=== PATIENT | female | born 1945 | race Caucasian/White ===

== ENCOUNTER 2021-06-16 09:14 | Emergency (ER) | payer MEDICARE, BC ==
--- NOTE | 2021-06-16 10:02 | XRAY ---
Indication: Pain and swelling following fall. Comparison: None 3 view left ankle demonstrates minimally displaced lateral malleolus oblique fracture with soft tissue swelling. Elsewhere osteopenia, tiny heel spurs, and minimal ankle vascular calcifications. No other bony, articular, or soft tissue abnormalities.
[2021-06-16] MEDS ORDERED: TORAdol 30 mg Injection IM ONE (10:09)
[2021-06-16] MEDS ORDERED: TORAdol 30 mg Injection ONE (10:15)
--- NOTE | 2021-06-16 10:16 | ERPHSYRPT ---
- History of Present Illness Time Seen by Provider: 06/16/21 09:40 Source: patient Exam Limitations: no limitations Patient Subjective Stated Complaint: pt was walking down a ramp and slid on some ice twisting her left ankle Triage Nursing Assessment: Pt was brought to the ER by her , hypertensive, rates pain without moving as 1/10, denies hitting head or LOC, swelling to the medial left ankle with bruising, pulses normal, doesn't appear to be in any distress Physician History: Patient is a 75-year-old female presents to emergency department for evaluation of left ankle pain. Patient states she was at home walking down a ramp and slipped on the ice. Patient felt sudden pain in her left ankle. Pain described as an ache that is well localized. No radiation. Pain worse with weightbearing. Pain improved with rest. No other injuries. Patients fall was not associated with any neuro cardiovascular symptomology. Patient declined pain medication. Patient denies BHT or LOC. No neck pain. Cervical spine cleared clinically. Patient voices no other complaints or concerns at this time. Method of Injury: fell, twisted Occurred: just prior to arrival Quality: constant Severity of Pain-Max: moderate Severity of Pain-Current: mild Lower Extremities Pain: ankle: left Modifying Factors: Improves With: nothing Associated Symptoms: none Allergies/Adverse Reactions: No Known Drug Allergies Allergy (Verified 06/16/21 09:35) Home Medications: Losartan Potassium [Cozaar] 25 mg PO DAILY 06/16/21 [History] Travel Risk - International Travel Have you traveled outside of the country in past 3 weeks: No - Coronavirus Screening Are you exhibiting any of the following symptoms?: No Close contact with a COVID-19 positive Pt in past 14-21 Days: No - Vaccine Status Have you recieved a Covid-19 vaccination: No - Review of Systems Constitutional: No Symptoms, No Fever, No Chills Eyes: No Symptoms Ears, Nose, & Throat: No Symptoms Respiratory: No Symptoms, No Cough, No Dyspnea Cardiac: No Symptoms, No Chest Pain, No Edema, No Syncope Abdominal/Gastrointestinal: No Symptoms, No Abdominal Pain, No Nausea, No Vomiting, No Diarrhea Genitourinary Symptoms: No Symptoms, No Dysuria Musculoskeletal: No Symptoms, No Back Pain, No Neck Pain Skin: No Symptoms, No Rash Neurological: No Symptoms, No Dizziness, No Focal Weakness, No Sensory Changes Psychological: No Symptoms Endocrine: No Symptoms Hematologic/Lymphatic: No Symptoms Immunological/Allergic: No Symptoms All Other Systems: Reviewed and Negative - Past Medical History Pertinent Past Medical History: No - Past Surgical History Past Surgical History: No - Social History Smoking Status: Never smoker Exposure to second hand smoke: No Drug Use: none Patient Lives Alone: No - Female History Hx Now: No - Nursing Vital Signs Nursing Vital Signs: Initial Vital Signs Temperature 97.9 F 06/16/21 09:30 Pulse Rate 62 06/16/21 09:30 Blood Pressure 168/78 06/16/21 09:30 O2 Sat by Pulse Oximetry 96 06/16/21 09:30 Pain Scale Pain Intensity 1 - Physical Exam General Appearance: no apparent distress, alert Eyes, Ears, Nose, Throat Exam: normal ENT inspection, TMs normal, pharynx normal, moist mucous membranes Neck Exam: normal inspection, non-tender, supple, full range of motion Cardiovascular/Respiratory Exam: chest non-tender, normal breath sounds, regular rate/rhythm, no respiratory distress Gastrointestinal/Abdominal Exam: non-tender, No guarding, No tenderness Back Exam: normal inspection, No vertebral tenderness Hips Exam: bilateral: non-tender, normal inspection, normal range of motion, no evidence of injury Legs Exam: bilateral leg: non-tender, normal inspection, normal range of motion, no evidence of injury Knees Exam: bilateral knee: non-tender, normal inspection, normal range of motion, no evidence of injury Ankle Exam: right ankle: non-tender, normal inspection, normal range of motion, no evidence of injury, left ankle: pain, soft tissue tenderness, swelling (Tenderness to palpation left lateral ankle.), other (Left lower extremities neurovascular intact distally. Compartments are soft. Cap refill less than 2 seconds. Swelling left lateral ankle. There is tenderness to palpation over this area as well.) Foot Exam: bilateral foot: non-tender, normal inspection, normal range of motion, no evidence of injury Neuro/Tendon Exam: normal sensation, normal motor functions Mental Status Exam: alert, oriented x 3, cooperative Skin Exam: normal color, warm, dry SpO2 Interpretation: normal SpO2: 96 O2 Delivery: Room Air - Course Nursing assessment & vital signs reviewed: Yes - Radiology Exams Ankle X-ray Interpretation: Interpreted by me (Left distal fibular fracture. Minimal widening of ankle mortise) Lower Leg X-ray Interpretation: Interpreted by me (Left distal fibular fracture. Mild widening at ankle mortise. Ankle swelling. Otherwise no soft tissue abnormalities.) Ordered Tests: Active Orders 24 hr Category Date Time Status ANKLE (3 VIEWS) Stat Exams 06/16/21 09:44 Completed LOWER LEG Stat Exams 06/16/21 10:21 Completed Medication Summary Discontinued Medications Generic Name Dose Route Start Last Admin Trade Name Caroline PRN Reason Stop Dose Admin Ketorolac Tromethamine 30 mg 06/16/21 10:09 06/16/21 10:16 Ketorolac Tromethamine 30 Mg/Ml Inj IM 06/16/21 10:10 30 mg STAT ONE Administration Ketorolac Tromethamine Confirm 06/16/21 10:15 Ketorolac Tromethamine 30 Mg/Ml Inj Administered 06/16/21 10:16 Dose 30 mg .ROUTE .STK-MED ONE - Progress Progress: improved Progress Note: X-rays reveal a ankle fracture. Fracture immobilized. Crutches provided. Patient referred to orthopedic clinic. Patient received Toradol for pain control. She voices no other complaints at this time. Patient takes ready for discharge. Patient neurovascular intact distally after splint application. Portions of this note were created with voice recognition technology. There may be grammatical, spelling, punctuation or sound alike errors 06/16/21 11:00 Counseled pt/family regarding: diagnosis, need for follow-up, rad results - Departure Departure Disposition: Home Clinical Impression: Fall, Ankle fracture Condition: Stable Critical Care Time: No Referrals: EREN MORENO [Primary Care Provider] - Follow up/PCP as directed Additional Instructions: Discharge/Care Plan NORA PALMA was seen on 06/16/21 in the Emergency Room. The patient was counseled regarding Diagnosis,Lab results, Imaging studies, need for follow up and when to return to the Emergency Room. Prescriptions given: Discharge Note I have spoken with the patient and/or caregivers. I have explained the patient's condition, diagnosis and treatment plan based on the information available to me at this time. I have answered the patient's and/or caregiver's questions and addressed any concerns. The patient and/or caregivers have as good understanding of the patient's diagnosis, condition and treatment plan as can be expected at this point. The vital signs have been stable. The patient's condition is stable and appropriate for discharge from the emergency department. The patient will pursue further outpatient evaluation with the primary care physician or other designated or consulting physician as outlined in the discharge instructions. The patient and/or caregivers are agreeable to this plan of care and follow-up instructions have been explained in detail. The patient and/or caregivers have received these instruction. The patient/and or caregivers are aware that any significant change in condition or worsening of symptoms should prompt an immediate return to this or the closest emergency department or call 911. Prescriptions: Ketorolac Tromethamine [Toradol] 10 mg PO TID 5 Days #15 tablet Outpatient Orders: Ortho Referral Time Frame: 1 Day, Facility: [facility], Location: [facility]
--- NOTE | 2021-06-16 10:48 | XRAY ---
Indication: Fracture. Comparison: None 2 view left lower leg demonstrates incompletely visualized distal lower leg/ankle cast material limiting evaluation for fine bony detail. There is mildly displaced lateral malleolus fracture and osteopenia. No other bony, articular, or soft tissue abnormalities.
== END 2021-06-16 11:37 | disposition home or self-care (01) ==
LOC: ED 09:14
DX: S82.62XA Displaced fracture of lateral malleolus of left fibula, initial encounter for closed fracture (principal); W00.0XXA Fall on same level due to ice and snow, initial encounter; Y92.009 Unspecified place in unspecified non-institutional (private) residence as the place of occurrence of the external cause
CPT/HCPCS: 73590; 73610; 96372; 99284; J1885

== ENCOUNTER 2021-06-20 04:50 | Day surgery (SDC) | payer MEDICARE, BC ==
[2021-06-20] MEDS ORDERED: CEFAZOLIN 2 GM-D5W BAG** 2 GM/50 ML ML IV SCH (05:00)
[2021-06-20] MEDS ORDERED: Lactated Ringers 1,000 ML IV SCH (05:00)
[2021-06-20] MEDS ORDERED: Xylocaine-Mpf 2% 5 Ml Vial ONE (05:33)
[2021-06-20] MEDS ORDERED: DIPRIVAN 200 MG/20 ML IV ONE (05:33)
[2021-06-20] MEDS ORDERED: Zofran 4 MG/2 ML VIAL ONE (05:33)
[2021-06-20] MEDS ORDERED: SUBLIMAZE 100 MCG/2 ML ONE ×2 (05:34→08:46)
[2021-06-20] MEDS ORDERED: Pepcid 20 MG VIAL IV ONE (05:53)
[2021-06-20] MEDS ORDERED: TORAdol 30 mg Injection ONE (05:57)
[2021-06-20] MEDS ORDERED: Decadron 4 MG INJ ONE ×2 (05:57→07:47)
[2021-06-20] MEDS ORDERED: Zemuron 100 MG/10 ML ONE (05:57)
[2021-06-20] MEDS ORDERED: BRIDION 200MG/2ML IV ONE (05:57)
[2021-06-20] MEDS ORDERED: FAMOTIDINE 20 MG PIGGYBACK 20 MG/50 ML ML IV ONE (06:07)
[2021-06-20] MEDS ORDERED: Naropin 0.5% 30 ML VIAL ONE (07:47)
[2021-06-20] MEDS ORDERED: Hydromorphone 1 mg/ml Injection ONE (08:46)
--- NOTE | 2021-06-20 09:38 | XRAY ---
Indication: Left ankle ORIF surgery. Intraoperative fluoroscopy provided for 2 minutes 34 seconds. 36 digital spot images ultimately demonstrates lateral fixation plate/screws fixating lateral malleolus fracture in good apposition/alignment. Correlate with intraoperative findings/report.
--- NOTE | 2021-06-20 10:30 | OP ---
SURGERY DATE/TIME: 06/20/2021 0635 PREOPERATIVE DIAGNOSES: 1) Bimalleolar equivalent fracture of the left lower extremity. 2) Left ankle pain. 3) Syndesmotic disruption. POSTOPERATIVE DIAGNOSES: 1) Bimalleolar equivalent fracture of the left lower extremity. 2) Left ankle pain. 3) Syndesmotic disruption. PROCEDURE: Open reduction internal fixation of bimalleolar fracture left ankle with syndesmotic reduction. SURGEON: Jd Naqvi DPM. DIRECTOR RISK: None. ANESTHESIA: General plus postoperative popliteal block. See anesthesia report for details. HEMOSTASIS: Thigh tourniquet set to 350 mm of Mercury for 52 minutes. ESTIMATED BLOOD LOSS: Less than 20 cc. MATERIALS: Dilshad periarticular distal lateral fibula plate. A 6-hole left sided with a 3.5 x 56 mm syndesmotic screw. INDICATION FOR SURGERY: Nelda is a very pleasant 75 -year-old female who presented to my office on June 17, after having fallen the morning of as she was walking out of her home to walk her dogs and slipped on some ice. She suffered immediate pain to the left ankle and presented to the emergency room and was diagnosed with a bimalleolar equivalent ankle fracture. She presented to my office the same day and was scheduled for surgical intervention. The patient was informed that the day of surgical intervention would be determined indefinitely by her soft tissue appearance. On presentation, she was swollen. However, there was no ecchymosis or concerns. However, I was unable to assess for resting skin tension lines. On appearance this morning prior to the surgery, her resting skin tension lines were mobile, malleable and visible. The decision to proceed with surgical intervention was maintained. The patient understands all risks, complications and benefits of surgical intervention including but not limited to delayed wound healing, delayed bone healing, nonbone healing and nonwound healing, possible failure of surgical intervention and need for further surgical intervention in the future as well as need for surgical intervention to remove said hardware if it becomes irritating. She understands all of this and wishes to proceed. The patient's consent is signed and in the paper chart. It is with this we proceeded. DESCRIPTION OF PROCEDURE AND FINDINGS: The patient was assessed preoperatively in the same day surgery holding area and deemed to be an adequate candidate for surgical intervention. At this time the patient was brought into the OR and placed on the OR table in the supine position. Following this, the patient was then administered general anesthesia until sedated. A well-padded thigh tourniquet was placed on the patient's left upper thigh. Following this the left lower extremity was prepped and draped in typical sterile fashion and the left lower extremity was lowered onto the surgical field. At this time fluoroscopy was brought in to identify the location of the fibular fracture. This was marked with a marking pen and the fibular margins were then identified. Following this an Esmarch was utilized to exsanguinate the left lower extremity. The tourniquet was inflated to 350 mm of Mercury and the tourniquet was inflated. At this time the Esmarch was let down and a 15 blade was utilized to make an incision at the posterior margin of the fibula where the fracture site was quickly encountered. There was a combination of sharp and blunt dissection in order to prevent any neurovascular structures in this area. A significant amount of hematoma was found at the fracture site which was cleared out with copious amounts of sterile saline. At this time assessment of the fracture was made. A dental pick was used to clean out the hematoma in between the fracture site and there was an external rotation as well as proximal migration of the fracture fragment which the foot was held in eversion and plantar flexion in order to distract out as well as gaining longitudinal traction to the heel in order to reduce the fragment into anatomical position. A lobster claw clamp was utilized to maintain this position and this was checked under fluoroscopy. At this time a provisional fixation was applied with a Dilshad periarticular distal lateral fibular plate and gaining compression of the plate opposed to the surface of the bone utilizing a combination of locking and nonlocking screws. The distal nonlocking screws were placed unicortical in order to prevent any intervention of the joint itself and the plate was deemed to be adequate. Once all fixation was placed this was checked under fluoroscopy. A stress view was applied to the deltoid ligament which was deemed to be adequate at this time as far as laxity. The syndesmosis was then stressed and deemed to have some residual failure and gapping. At this time the decision was made to proceed with a syndesmotic screw after drilling and measuring the syndesmosis screw was inserted at a 15 to 30 degree angle relative the tibial incisura with the fibular apposition. A 3.5 mm x 56 mm screw was introduced in this orientation with a tenaculum on the peroneal trochlea of the fibula and the anterior one-third of the medial malleolus in order to insure adequate apposition this was checked under fluoroscopy. At this time final views were taken with the intraoperative fluoroscopy and the reduction was deemed to be excellent. At this time copious amounts of sterile saline were utilized to flush the surgical site and a 2.0 Vicryl was utilized to coapt the subcutaneous skin edges. Following this a 3-0 Nylon was then utilized in a horizontal mattress-type fashion to coapt the skin edges in an everted-type fashion. At this time the leg was cleansed with sterile saline and dried. A dressing consisting of Betadine, Adaptic, 4x4, Kerlix and a well-padded posterior splint with sugar-tong was applied to the left lower extremity with the foot 90 degrees relative to the leg in order to prevent contracture. The patient was then provided a popliteal block. See anesthesia report for details. Following this the patient was reversed from anesthesia and brought to the postoperative anesthesia care unit with vital signs stable and vascular status intact. The patient handled the procedure without complication as well as the anesthesia and was returned to same day surgery at that time. Postoperative orders as indicated in the patient's postoperative discharge chart.
--- NOTE | 2021-06-20 12:22 | XRAY ---
2 minutes and 34 seconds fluoroscopy time in surgery for ORIF and syndesmotic repair of the left ankle.
== END 2021-06-20 10:20 | disposition home or self-care (01) ==
LOC: SDC 04:50
PROVIDERS: ATTEND Podiatrist Foot & Ankle Surgery
DX: S82.842A Displaced bimalleolar fracture of left lower leg, initial encounter for closed fracture (principal); S93.492A Sprain of other ligament of left ankle, initial encounter; M25.572 Pain in left ankle and joints of left foot; M25.372 Other instability, left ankle
CPT/HCPCS: 27814; 27829; 64450; 73610; 76000; 76937; 76942; 93005; 99100; J0690; J1100; J1170; J1885; J2405; J2704; J2795; J3010

== ENCOUNTER 2021-12-18 18:20 | Observation (INO) | payer MEDICARE, BC ==
[2021-12-18] MEDS ORDERED: Lasix 20 MG/2 ML IV SCH (19:45)
[2021-12-18] MEDS ORDERED: Sodium Chloride 0.9% 500 ML 500 ML IV SCH (20:00)
[2021-12-18 20:57] LABS: INFLUENZA A NEGATIVE (NEGATIVE); INFLUENZA B NEGATIVE (NEGATIVE); RESPIRATORY SYNCTIAL VIRUS NEGATIVE (Negative); SARS-CoV-2 Xpert Express NEGATIVE (NEGATIVE)
[2021-12-18 22:22] LABS: ABO TYPING O; Antibody Screen NEGATIVE (NEGATIVE); RH TYPING POSITIVE
[2021-12-18 22:24] LABS: CROSS MATCH (PRBC) COMPATIBLE (COMPATIBLE)
[2021-12-19 05:39] LABS: Hemoglobin 8.5 gm/dl (12.0-16.0)
--- NOTE | 2021-12-19 11:32 | PCM.HP.ADD ---
Addendum to History & Physical - History & Physical Addendum Addendum to History & Physical: This certifies that the History & Physical in the electronic chart reflects the current health status of the patient. If there are changes in the H&P these changes/exceptions are listed as follows.
--- NOTE | 2021-12-19 11:38 | PCM.DS ---
Discharge Summary Date of Admission: 12/18/21 19:34 Admitting Physician: EREN MORENO Primary Care Provider: EREN MORENO Allergies Allergies No Known Drug Allergies Allergy (Verified 06/20/21 05:01) Hospital Summary - Hospital Course Hospital Course: Pt is a 76 yo female with atherosclerotic disease (recent carotid endarterectomy) and Rose's esophagus (seeing GI q3mo) who was admitted directly by me for anemia. She was feeling SOB with exertion and was found to have hgb of 6.2. She received 2 units of PRBC and is feeling less lightheaded this morning. Will be discharged to home on iron BID. I have called and left a message with Dr. Jay Morrow's office (GI) at [phone] re patient following up with him soon. She has an appt with me already scheduled on December 25 so we will keep that and recheck her CBC then. Pt denies any melena or hematochezia. She has not been taking her plavix regularly. - Vitals & Intake/Output Vital Signs: Vital Signs Temperature 98.3 F 12/19/21 08:00 Pulse Rate 68 12/19/21 08:00 Respiratory Rate 20 12/19/21 08:00 Blood Pressure 136/63 12/19/21 08:00 O2 Sat by Pulse Oximetry 98 12/19/21 08:00 Intake & Output: Intake & Output 12/16/21 12/17/21 12/18/21 12/19/21 11:59 11:59 11:59 11:59 Intake Total 1190 Output Total 2200 Balance -1010 Weight 60.6 kg - Lab Result Diagrams: 12/19/21 04:20 Lab Results-Last 24 Hrs: Lab Results-Last 24 Hours 12/18/21 12/18/21 12/18/21 Range/Units 20:05 20:05 Unknown Hgb (12.0-16.0) gm/dl Hct (35-47) % Influenza Type A Ag NEGATIVE (NEGATIVE) Influenza Type B Ag NEGATIVE (NEGATIVE) RSV (PCR) NEGATIVE (Negative) SARS-CoV-2 (PCR) NEGATIVE (NEGATIVE) ABO Group O Rh Factor POSITIVE Antibody Screen NEGATIVE (NEGATIVE) Crossmatch COMPATIBLE COMPATIBLE (COMPATIBLE) 12/19/21 Range/Units 04:20 Hgb 8.5 L D (12.0-16.0) gm/dl Hct 28.0 L (35-47) % Influenza Type A Ag (NEGATIVE) Influenza Type B Ag (NEGATIVE) RSV (PCR) (Negative) SARS-CoV-2 (PCR) (NEGATIVE) ABO Group Rh Factor Antibody Screen (NEGATIVE) Crossmatch (COMPATIBLE) Discharge Exam General Appearance: no apparent distress, alert Neurologic Exam: oriented x 3, cooperative Eye Exam: eyes nml inspection Ears, Nose, Throat Exam: moist mucous membranes Neck Exam: normal inspection Respiratory Exam: normal breath sounds, lungs clear, No crackles/rales, No rhonchi, No wheezing Cardiovascular Exam: regular rate/rhythm, normal heart sounds, No murmur Gastrointestinal/Abdomen Exam: soft, normal bowel sounds, No tenderness, No distention, No mass, No guarding, No rebound Back Exam: normal inspection, No rash Extremity Exam: normal inspection, No pedal edema, No swelling Skin Exam: normal color, warm, dry, No rash Final Diagnosis/Problem List - Final Discharge Diagnosis/Problem (1) Anemia Current Visit: Yes Status: Acute Assessment & Plan: improved to 8.5 hgb, from 6.2 on admission. Home on iron. Iron studies are pending. If neg GI workup, would have her see hematology. Code(s): D64.9 - ANEMIA, UNSPECIFIED (2) Barretts esophagus Current Visit: Yes Status: Chronic Assessment & Plan: sees Dr. Morrow q 3 mo - will have her f/u with him jorge. Code(s): K22.70 - ROSE'S ESOPHAGUS WITHOUT DYSPLASIA (3) Atherosclerotic cardiovascular disease Current Visit: Yes Status: Chronic Assessment & Plan: recent endarterectomy. Will discuss with her counter maker whether to recommend pt stay on plavix. Pt has admittedly been noncompliant with the plavix. Code(s): I25.10 - ATHSCL HEART DISEASE OF INUPIAT CORONARY ARTERY W/O ANG PCTRS - Discharge Disposition: Home, Self-Care Condition: Good Prescriptions: Continue Losartan Potassium [Cozaar] 25 mg PO DAILY PRN PRN PRN Reason: htn Sertraline HCl [Zoloft] 25 mg PO DAILY Cholecalciferol (Vitamin D3) [Vitamin D] 0 unit PO DAILY Ascorbic Acid 500 mg [Vitamin C 500 MG] 0 mg PO DAILY Zinc 0 mg PO DAILY Follow up with: EREN MORENO [Primary Care Provider] -
[2021-12-19] MEDS ORDERED: Pepcid 20 MG PO SCH (11:40)
[2021-12-19 12:10] VITALS: BP 136/58; PULSE 81; O2SAT 97
== END 2021-12-19 13:58 | disposition home or self-care (01) ==
LOC: MED SURG 19:34
PROVIDERS: ADMIT Family Medicine; ATTEND Family Medicine
DX: D64.9 Anemia, unspecified (principal); K22.70 Barrett's esophagus without dysplasia; I25.10 Atherosclerotic heart disease of native coronary artery without angina pectoris; E78.00 Pure hypercholesterolemia, unspecified; F41.9 Anxiety disorder, unspecified; Z79.01 Long term (current) use of anticoagulants; Z79.899 Other long term (current) drug therapy; Z20.828 Contact with and (suspected) exposure to other viral communicable diseases
CPT/HCPCS: 0241U; 36415; 36430; 85014; 85018; 86850; 86900; 86901; 86922; G0328; G0378; P9016; 80053; 81001; 82274; 82607; 82746; 84443; 85025; J1940; A9270-GY

== ENCOUNTER 2022-04-02 01:36 | Inpatient (IN) | payer MEDICARE, BC ==
[2022-04-02] MEDS ORDERED: TYLENOL 325 MG PO STA (01:54)
[2022-04-02] MEDS ORDERED: Sodium Chloride 0.9% 1000 ML 1,000 ML IV SCH (02:00)
--- NOTE | 2022-04-02 02:05 | ERPHSYRPT ---
- History of Present Illness Time Seen by Provider: 04/02/22 02:02 Source: patient Patient Subjective Stated Complaint: " I feel sick, the past couple of days. I have nausea, I feel weak. I have pain in my left leg. I got so tired earlier I had to lay down on the floor because I couldn't make it to the bathroom." Triage Nursing Assessment: Pt is alert and oriented x 3. Appears weak. Arrives to ER with daughter RADHA for generalized weakness x 2 days. Complains of fatigue, pain in left leg, and nausea. States that she had Covid a month ago. Pt denies falling or injury, was reported to be found down on floor at home but states she decided to lay down because she felt so tired. Pt is hot to touch. Skin is pale. Appears to not feel well. Physician History: Patient is a 76-year-old female presents to emergency department for evaluation. Patient complains of feeling sick for the past couple days. Patient states she is feeling nauseous weakness fatigue. Patient states she feels so weak that she is unable to walk to her bathroom. Patient laid on the floor for period of time to rest. There was no fall no trauma. No injuries. Patient also complains of pain to the left leg. Symptoms are progressive. Symptoms are moderate in intensity. Patient states she had COVID 1 month ago but has recovered. No associated chest pain or shortness of breath. No diarrhea. No rash. Patient denies a history of the same. She voices no other complaints or concerns at this time. Patient adds that she has not urinated in 2 days. However she does have the urge to urinate but has not produced urine. We will insert a Ugalde catheter. Portions of this note were created with voice recognition technology. There may be grammatical, spelling, punctuation or sound alike errors Timing/Duration: day(s) Severity: moderate Modifying Factors: Improves With: nothing Associated Symptoms: nausea, fever, malaise, weakness, No syncope Allergies/Adverse Reactions: No Known Drug Allergies Allergy (Verified 04/02/22 01:44) Home Medications: Losartan Potassium [Cozaar] 25 mg PO DAILY PRN PRN 06/16/21 [History] Ascorbic Acid 500 mg [Vitamin C 500 MG] 0 mg PO DAILY 12/19/21 [History] Cholecalciferol (Vitamin D3) [Vitamin D] 0 unit PO DAILY 12/19/21 [History] Zinc 0 mg PO DAILY 12/19/21 [History] Hx Tetanus, Diphtheria Vaccination/Date Given: No Hx Influenza Vaccination/Date Given: No Hx Pneumococcal Vaccination/Date Given: No Immunizations Up to Date: No Travel Risk - International Travel Have you traveled outside of the country in past 3 weeks: No - Coronavirus Screening Are you exhibiting any of the following symptoms?: Yes Symptoms: Vomiting/Diarrhea, Headaches/Body Aches/Fatigue Close contact with a COVID-19 positive Pt in past 14-21 Days: Yes - Vaccine Status Have you recieved a Covid-19 vaccination: No - Review of Systems Constitutional: No Symptoms, No Fever, No Chills Eyes: No Symptoms Ears, Nose, & Throat: No Symptoms Respiratory: No Symptoms, No Cough, No Dyspnea Cardiac: No Symptoms, No Chest Pain, No Edema, No Syncope Abdominal/Gastrointestinal: No Symptoms, No Abdominal Pain, No Nausea, No Vomiting, No Diarrhea Genitourinary Symptoms: No Symptoms, No Dysuria Musculoskeletal: No Symptoms, No Back Pain, No Neck Pain Skin: No Symptoms, No Rash Neurological: No Symptoms, No Dizziness, No Focal Weakness, No Sensory Changes Psychological: No Symptoms Endocrine: No Symptoms Hematologic/Lymphatic: No Symptoms Immunological/Allergic: No Symptoms All Other Systems: Reviewed and Negative - Past Medical History Pertinent Past Medical History: Yes Neurological History: No Pertinent History ENT History: No Pertinent History Cardiac History: Hypertension Respiratory History: No Pertinent History Endocrine Medical History: No Pertinent History Musculoskeletal History: Fractures GI Medical History: GERD, Hernia, Other History: No Pertinent History Psycho-Social History: No Pertinent History Female Reproductive Disorders: No Pertinent History Other Medical History: STATES SHE DOESN'T TAKE HER BLOOD PRESSURE MEDS REGULARLY. Barretts esophagus - Past Surgical History Past Surgical History: Yes Neuro Surgical History: No Pertinent History Cardiac: No Pertinent History Respiratory: No Pertinent History Gastrointestinal: No Pertinent History Genitourinary: No Pertinent History Musculoskeletal: No Pertinent History Female Surgical History: No Pertinent History Other Surgical History: colonoscopies-two ( clear), esoph. ablations r/t barretts esophagus - Social History Smoking Status: Never smoker Exposure to second hand smoke: No Drug Use: none Patient Lives Alone: No - Nursing Vital Signs Nursing Vital Signs: Initial Vital Signs Temperature 99.5 F 04/02/22 01:39 Pulse Rate 98 H 04/02/22 01:39 Respiratory Rate 20 04/02/22 01:39 Blood Pressure 105/68 04/02/22 01:39 O2 Sat by Pulse Oximetry 97 04/02/22 01:39 Pain Scale Pain Intensity 9 - Physical Exam General Appearance: no apparent distress, alert Eye Exam: PERRL/EOMI, eyes nml inspection Ears, Nose, Throat Exam: normal ENT inspection, TMs normal, pharynx normal, moist mucous membranes, dry mucous membranes Neck Exam: normal inspection, non-tender, supple, full range of motion Respiratory Exam: normal breath sounds, lungs clear, airway intact, No respi ratory distress Cardiovascular Exam: regular rate/rhythm, normal heart sounds, normal peripheral pulses Gastrointestinal/Abdomen Exam: soft, normal bowel sounds, No tenderness, No mass Back Exam: normal inspection, normal range of motion, No CVA tenderness, No vertebral tenderness Extremity Exam: normal inspection, normal range of motion, pelvis stable Neurologic Exam: alert, oriented x 3, cooperative, normal mood/affect, sensation nml, No motor deficits Skin Exam: normal color, warm, dry, No rash Lymphatic Exam: No adenopathy SpO2 Interpretation: normal SpO2: 97 O2 Delivery: Room Air - Course Nursing assessment & vital signs reviewed: Yes EKG Interpreted by Me: RATE (86), Sinus Rhythm, NORMAL AXIS, NORMAL INTERVALS - Radiology Exams Chest X-ray Interpretation: Interpreted by me (Bilateral calcified granulomas. No infiltrate or consolidation. No effusions. Normal cardiac silhouette. Osteopenia. Degenerative changes. Intact bony thorax) Ordered Tests: Active Orders 24 hr Category Date Time Status Exceptional Student Education Teacher STAT Care 04/02/22 01:55 Active EKG-ER Only STAT Care 04/02/22 01:54 Active Ugalde [Catheter-[place] Ugalde] STAT Care 04/02/22 02:35 Active IV Insertion STAT Care 04/02/22 01:54 Active Pulse Oximetry (ED) STAT Care 04/02/22 01:54 Active Telemetry q4h Care 04/02/22 03:35 Ordered CHEST 1 VIEW (PORTABLE) Stat Exams 04/02/22 01:55 Taken BLOOD CULTURE Stat Lab 04/02/22 02:18 Received CBC W DIFF Stat Lab 04/02/22 02:17 Completed CMP Stat Lab 04/02/22 02:17 Completed CULTURE,URINE Stat Lab 04/02/22 02:34 Received Lactic Acid Stat Lab 04/02/22 02:13 Completed Manual Differential NC Stat Lab 04/02/22 02:17 Completed TROPONIN Q4H Lab 04/02/22 02:17 Completed TROPONIN Q4H Lab 04/02/22 06:00 Ordered TROPONIN Q4H Lab 04/02/22 10:00 Ordered UA W/RFX CULTURE Stat Lab 04/02/22 02:34 Completed Medication Summary Generic Name Dose Route Start Last Admin Trade Name Caroline PRN Reason Stop Dose Admin Sodium Chloride 1,000 mls @ 100 mls/hr 04/02/22 02:00 04/02/22 02:15 Sodium Chloride 0.9% 1000 Ml IV 05/02/22 01:59 100 mls/hr .Q10H BASIA Administration Levofloxacin/Dextrose 500 mg in 100 mls @ 100 mls/hr 04/02/22 03:31 Levofloxacin 500mg/100ml D5w IV 04/02/22 04:30 STAT STA Potassium Chloride 20 meq in 100 mls @ 50 mls/hr 04/02/22 03:45 Potassium Chloride 20 Meq In Water 100ml IV 04/02/22 07:44 Q2H BASIA Magnesium Sulfate/Dextrose 100 mls @ 100 mls/hr 04/02/22 03:45 Magnesium 1 Gm / 100 Ml D5w IV 04/02/22 05:44 Q1H BASIA Discontinued Medications Generic Name Dose Route Start Last Admin Trade Name Caroline PRN Reason Stop Dose Admin Acetaminophen 975 mg 04/02/22 01:54 04/02/22 02:14 Acetaminophen 325 Mg Tablet PO 04/02/22 01:55 975 mg STAT STA Administration Acetaminophen Confirm 04/02/22 02:13 Acetaminophen 325 Mg Tablet Administered 04/02/22 02:14 Dose 975 mg .ROUTE .[facility] Lab/Rad Data: Laboratory Result Diagrams 04/02/22 02:17 04/02/22 02:17 Laboratory Results 04/02/22 04/02/22 04/02/22 Range/Units 02:34 02:18 02:17 WBC (4.0-10.5) x10^3/uL RBC (4.1-5.4) x10^6/uL Hgb (12.0-16.0) g/dL Hct (35-47) % MCV (78-100) fL MCH (26-32) pg MCHC (32-36) g/dL RDW (11.5-14.0) % Plt Count (150-450) x10^3/uL MPV (7.5-11.0) fL Segmented Neutrophils (36.0-66.0) % Band Neutrophils (0.0-2.0) % Lymphocytes (Manual) (24-44) % Monocytes (Manual) (0.0-12.0) % Hypochromia Platelet Estimate (NORMAL) RBC Morphology Sodium (137-145) mmol/L Potassium (3.5-5.1) mmol/L Chloride (98-107) mmol/L Carbon Dioxide (22-30) mmol/L Anion Gap (5-15) MEQ/L BUN (7-17) mg/dL Creatinine (0.52-1.04) mg/dL Estimated GFR ML/MIN Glucose (74-106) mg/dL Lactic Acid (0.4-2.0) Calcium (8.4-10.2) mg/dL Total Bilirubin (0.2-1.3) mg/dL AST (14-36) U/L ALT (0-35) U/L Alkaline Phosphatase (38-126) U/L Troponin I < 0.012 (0.000-0.034) ng/mL Serum Total Protein (6.3-8.2) g/dL Albumin (3.5-5.0) g/dL Urinalys Dipstick Clnc MAIN LAB Urine Color YELLOW (YELLOW) Urine Appearance CLOUDY (CLEAR) Urine pH 6.0 (5-6) Ur Specific [place] 1.025 (1.005-1.025) POC Urine Protein Conf 100 (Negative) Urine Ketones SMALL-15 (NEGATIVE) Urine Nitrite POSITIVE (NEGATIVE) Urine Bilirubin NEGATIVE (NEGATIVE) Urine Urobilinogen 0.2 (0-1) mg/dL Urine Leukocytes SMALL (NEGATIVE) Urine WBC (Auto) 51-100 (0-5) /HPF Urine RBC (Auto) 26-50 (0-2) /HPF U Hyaline Cast (Auto) 0-2 (0-2) /LPF U Epithel Cells (Auto) NONE (FEW) /HPF Urine Bacteria (Auto) MANY (NEGATIVE) /HPF Urine RBC MODERATE (0-5) Jesse/ul Unidentified Crystals 2-5 (NEGATIVE) /HPF Urine Mucus (Auto) SLIGHT (NEGATIVE) /HPF Ur Culture Indicated? YES Urine Glucose NEGATIVE (NEGATIVE) mg/dL Influenza Type A Ag NEGATIVE (NEGATIVE) Influenza Type B Ag NEGATIVE (NEGATIVE) RSV (PCR) NEGATIVE (Negative) SARS-CoV-2 (PCR) POSITIVE A (NEGATIVE) 04/02/22 04/02/22 04/02/22 Range/Units 02:17 02:17 02:13 WBC 14.2 H (4.0-10.5) x10^3/uL RBC 3.17 L (4.1-5.4) x10^6/uL Hgb 8.9 L (12.0-16.0) g/dL Hct 27.8 L (35-47) % MCV 87.7 (78-100) fL MCH 28.1 (26-32) pg MCHC 32.0 (32-36) g/dL RDW 14.7 H (11.5-14.0) % Plt Count 238 (150-450) x10^3/uL MPV 9.1 (7.5-11.0) fL Segmented Neutrophils 94 H (36.0-66.0) % Band Neutrophils 1 (0.0-2.0) % Lymphocytes (Manual) 1 L (24-44) % Monocytes (Manual) 4 (0.0-12.0) % Hypochromia 1+ Platelet Estimate NORMAL (NORMAL) RBC Morphology ABNORMAL Sodium 133 L (137-145) mmol/L Potassium 3.3 L (3.5-5.1) mmol/L Chloride 101 (98-107) mmol/L Carbon Dioxide 24 (22-30) mmol/L Anion Gap 10.9 (5-15) MEQ/L BUN 22 H (7-17) mg/dL Creatinine 0.75 (0.52-1.04) mg/dL Estimated GFR > 60.0 ML/MIN Glucose 118 H (74-106) mg/dL Lactic Acid 0.7 (0.4-2.0) Calcium 9.2 (8.4-10.2) mg/dL Total Bilirubin 0.50 (0.2-1.3) mg/dL AST 22 (14-36) U/L ALT 16 (0-35) U/L Alkaline Phosphatase 105 (38-126) U/L Troponin I (0.000-0.034) ng/mL Serum Total Protein 6.3 (6.3-8.2) g/dL Albumin 3.6 (3.5-5.0) g/dL Urinalys Dipstick Clnc Urine Color (YELLOW) Urine Appearance (CLEAR) Urine pH (5-6) Ur Specific [place] (1.005-1.025) POC Urine Protein Conf (Negative) Urine Ketones (NEGATIVE) Urine Nitrite (NEGATIVE) Urine Bilirubin (NEGATIVE) Urine Urobilinogen (0-1) mg/dL Urine Leukocytes (NEGATIVE) Urine WBC (Auto) (0-5) /HPF Urine RBC (Auto) (0-2) /HPF U Hyaline Cast (Auto) (0-2) /LPF U Epithel Cells (Auto) (FEW) /HPF Urine Bacteria (Auto) (NEGATIVE) /HPF Urine RBC (0-5) Jesse/ul Unidentified Crystals (NEGATIVE) /HPF Urine Mucus (Auto) (NEGATIVE) /HPF Ur Culture Indicated? Urine Glucose (NEGATIVE) mg/dL Influenza Type A Ag (NEGATIVE) Influenza Type B Ag (NEGATIVE) RSV (PCR) (Negative) SARS-CoV-2 (PCR) (NEGATIVE) - Progress Progress: improved Progress Note: Patient reassessed. She feels better. Work-up reveals a urinary tract infection/pyelonephritis. Patient is febrile. Leukocytosis observed on lab oratory work-up. Lactic acid within normal limits. Blood cultures pending. patient received Levaquin antibiotics. Patient was dehydrated on her physical exam. BUN/creatinine ratio greater than 20-1. IV fluids administered. Patient had a headache. Patient received both Tylenol and Toradol to address headache and fever. Work-up reveals a normocytic anemia. Patient appears to be chronically anemic. We will hold off on transfusing tonight. However patient typed and screened in the event that transfusion is needed on the floor. Patient hypokalemic. Patient receiving both potassium and magnesium replacement. Patient will require admission for further evaluation and treatment. Plan of care discussed with our patient's primary care provider. accepts admission to observation. Plan of care discussed with patient. She agrees to admission at [facility] for further evaluation and treatment. Of note patient states she had not urinated in 2 days. We placed a Ugalde catheter. Cloudy urine immediately expressed. Therefore there is some c omponent of urinary retention possibly related to urinary tract infection. However other urine outlet obstruction not ruled out. Patient is COVID-positive. Patient was COVID-positive last month. It is unclear if patient is experiencing a new COVID infection versus positive testing residual from previous COVID infection. Patient has no respiratory complaints. Patient's chest x-ray appears unchanged from previous. Admit orders entered Portions of this note were created with voice recognition technology. There may be grammatical, spelling, punctuation or sound alike errors 04/02/22 03:[address] Sony Will see patient in: hospital (observation) Counseled pt/family regarding: lab results, diagnosis, rad results - Departure Departure Disposition: Observation Clinical Impression: Leukocytosis, Normocytic anemia, Hypokalemia, Dehydration, Urinary retention, UTI (urinary tract infection), COVID-19, Pyelonephritis, Generalized weakness, Fever, Bandemia Condition: Stable Critical Care Time: No Referrals: EREN MORENO [Primary Care Provider] - Follow up/PCP as directed
[2022-04-02] MEDS ORDERED: TYLENOL 325 MG ONE (02:13)
[2022-04-02] MEDS ORDERED: Sodium Chloride 0.9% 1000 ML 1,000 ML ONE (02:13)
[2022-04-02 02:21] LABS: Hematocrit 27.8 % (35-47); Hemoglobin 8.9 g/dL (12.0-16.0); Mean Cell Volume 87.7 fL (78-100); Mean Corpuscular Hemoglobin 28.1 pg (26-32); Mean Platelet Volume 9.1 fL (7.5-11.0); Platelet Count 238 x10^3/uL (150-450); Red Blood Count 3.17 x10^6/uL (4.1-5.4); Red Cell Distribution Width 14.7 % (11.5-14.0); White Blood Count 14.2 x10^3/uL (4.0-10.5)
[2022-04-02 02:42] LABS: ALBUMIN 3.6 g/dL (3.5-5.0); ALKALINE PHOSPHATASE 105 U/L (38-126); ANION GAP 10.9 MEQ/L (5-15); BLOOD UREA NITROGEN 22 mg/dL (7-17); CHLORIDE 101 mmol/L (98-107); Calcium 9.2 mg/dL (8.4-10.2); Carbon Dioxide 24 mmol/L (22-30); Creatinine 1 0.75 mg/dL (0.52-1.04); EST GLOMERULAR FILTRATION RATE > 60.0 ML/MIN; Glucose 118 mg/dL (74-106); Potassium 3.3 mmol/L (3.5-5.1); SGOT/AST 22 U/L (14-36); SGPT/ALT 16 U/L (0-35); SODIUM 133 mmol/L (137-145); Total Protein 6.3 g/dL (6.3-8.2)
[2022-04-02 02:47] LABS: Bacteria MANY /HPF (NEGATIVE); Hyaline Casts 0-2 /LPF (0-2); Mucus SLIGHT /HPF (NEGATIVE); RBC 26-50 /HPF (0-2); WBC 51-100 /HPF (0-5)
[2022-04-02 02:48] LABS: Appearance CLOUDY (CLEAR); Bilirubin NEGATIVE (NEGATIVE); Dipstick done @ ? MAIN LAB; Glucose NEGATIVE (NEGATIVE); Ketones SMALL-15 (NEGATIVE); Nitrite POSITIVE (NEGATIVE); Protein,Urine Dip 100 (Negative); RBC MODERATE Ery/ul (0-5); Specific Gravity 1.025 (1.005-1.025); Urobilinogen 0.2 mg/dL (0-1)
[2022-04-02 02:49] LABS: Urine Cultured Indicated? YES
[2022-04-02 02:57] LABS: INFLUENZA A NEGATIVE (NEGATIVE); INFLUENZA B NEGATIVE (NEGATIVE); RESPIRATORY SYNCTIAL VIRUS NEGATIVE (Negative)
[2022-04-02 03:02] LABS: SARS-CoV-2 Xpert Express POSITIVE (NEGATIVE)
[2022-04-02 03:24] LABS: BAND 1 % (0.0-2.0); Lymphocytes 1 % (24-44); Monocyte 4 % (0.0-12.0); Platelet Estimate NORMAL (NORMAL); Total Cells Counted 100
[2022-04-02 03:25] LABS: Hypochromia 1+
[2022-04-02] MEDS ORDERED: Levofloxacin 500MG/100ML D5W 500 MG/100 ML BAG IV STA (03:31)
[2022-04-02] MEDS ORDERED: Levofloxacin 500MG/100ML D5W 500 MG/100 ML BAG IV ONE (03:42)
[2022-04-02] MEDS ORDERED: TORAdol 30 mg Injection IV ONE (03:49)
[2022-04-02] MEDS ORDERED: TORAdol 30 mg Injection ONE (03:50)
[2022-04-02] MEDS: POTASSIUM CHLORIDE 20 mEq IN WATER 100ML 20 MEQ/100 ML BAG IV SCH ×2 (03:58→06:46)
[2022-04-02] MEDS: Magnesium 1 Gm / 100 Ml D5W*** 100 ML IV SCH ×2 (04:00→05:28)
[2022-04-02 04:34] LABS: ABO TYPING O; Antibody Screen NEGATIVE (NEGATIVE); RH TYPING POSITIVE
[2022-04-02] MEDS ORDERED: MORPHINE SULFATE 4 MG INJ IV PRN (04:44)
[2022-04-02] MEDS: Carafate SUSPENSION 1000 MG/10 ML PO SCH ×4 (08:36→21:27)
--- NOTE | 2022-04-02 08:58 | XRAY ---
Indication: Weakness and pneumonia. Comparison: August 28, 2021 Portable chest remains hyperinflated and clear again with incidental calcified granulomas. Heart not enlarged. Bony thorax intact again with osteopenia, degenerative changes, and scoliosis. Impression: Continued nonacute hyperinflated chest with chronic features.
[2022-04-02] MEDS ORDERED: NON-FORMULARY ITEM (Losartan Potassium [Cozaar] 25 MG Tablet) PO PRN (09:09)
--- NOTE | 2022-04-02 09:10 | PCM.HP ---
History of Present Illness - Chief Complaint Chief Complaint: Pyelonephritis, hypokalemia History of Present Illness: Ms.VAN FUENTES is a 76 year old female pt of mine from [facility] with htn, hyperlipidemia, R carotid artery stenosis, Rose's esophagus, anemia, and anxiety who was admitted through ER with pyelonephritis, weakness, urine retention, and anemia. She was sick at home and got so weak she could not get up off the floor. Had not urinated more than a very small amount at a time in 2 days. Also c/o nausea and L leg pain (lateral mid thigh). Ugalde catheter was passed with immediate urine out showing UTI. Troponin neg x 1. WBC 14.2 with 94% seg. potassium 3.3 and being repleted. CXR nonacute. - Review of Systems Constitutional: Fatigue, Weakness Abdominal/Gastrointestinal: Nausea, Other (reflux) Genitourinary Symptoms: Urinary Retention, Flank Pain (on R), No Dysuria All Other Systems: Reviewed and Negative Medications & Allergies Home Medications: Home Medication List Losartan Potassium [Cozaar] 25 mg PO DAILY PRN PRN 06/16/21 [History Confirmed 04/02/22] Ascorbic Acid 500 mg [Vitamin C 500 MG] 0 mg PO DAILY 12/19/21 [History Confirmed 04/02/22] Cholecalciferol (Vitamin D3) [Vitamin D] 0 unit PO DAILY 12/19/21 [History Confirmed 04/02/22] Ferrous Sulfate 325 mg [Feosol 325 mg] 325 mg PO BID 30 Days #60 tablet 12/19/21 [Rx Confirmed 04/02/22] Zinc 0 mg PO DAILY 12/19/21 [History Confirmed 04/02/22] Allergies/Adverse Reactions: Allergies Allergy/AdvReac Type Severity Reaction Status Date / Time No Known Drug Allergies Allergy Verified 04/02/22 01:44 - Past Medical History Past Medical History: Yes Neurological History: No Pertinent History ENT History: No Pertinent History Cardiac History: Hypertension Respiratory History: No Pertinent History Endocrine Medical History: No Pertinent History Musculoskelatal History: Fractures GI Medical History: GERD, Hernia, Other History: No Pertinent History Pyscho-Social History: No Pertinent History Reproductive Disorders: No Pertinent History Comment: STATES SHE DOESN'T TAKE HER BLOOD PRESSURE MEDS REGULARLY. Barretts esophagus - Past Surgical History Past Surgical History: Yes Neuro Surgical History: No Pertinent History Cardiac History: No Pertinent History Respiratory Surgery: No Pertinent History GI Surgical History: No Pertinent History Genitourinary Surgical Hx: No Pertinent History Musculskeletal Surgical Hx: No Pertinent History Female Surgical History: No Pertinent History Other Surgical History: colonoscopies-two ( clear), esoph. ablations r/t barretts esophagus - Social History Smoking Status: Never smoker Exposure to second hand smoke: No Alcohol: None Drug Use: none - Physical Exam Vital Signs: Vital Signs - 24 hr Temp Pulse Resp BP Pulse Ox 04/02/22 08:00 98.9 F 82 16 112/55 100 04/02/22 06:47 100 04/02/22 05:32 100.5 F 87 16 115/64 100 04/02/22 04:44 100 04/02/22 04:07 99.9 F 84 19 135/56 97 04/02/22 04:00 97 04/02/22 03:07 100.2 F 84 19 143/67 95 04/02/22 02:37 100.2 F 87 13 143/60 96 04/02/22 01:59 97 04/02/22 01:39 99.5 F 98 H 20 105/68 97 General Appearance: no apparent distress, alert, thin Neurologic Exam: oriented x 3, cooperative, normal mood/affect Eye Exam: eyes nml inspection Ears, Nose, Throat Exam: moist mucous membranes Neck Exam: normal inspection Respiratory Exam: lungs clear, diminished breath sounds (AVEL), No crackles/rales, No rhonchi, No wheezing Cardiovascular Exam: regular rate/rhythm, normal heart sounds, No murmur Gastrointestinal/Abdomen Exam: soft, normal bowel sounds, No tenderness, No mass, No guarding, No rebound Back Exam: normal inspection, No rash Extremity Exam: other (possible faint bruise, L lateral mid thigh. mildly ttp. no crepitus, no lesion, no erythema, no mass) Results - Labs Lab/Micro Results: Lab Results-Last 24 Hours 04/02/22 04/02/22 04/02/22 Range/Units 02:13 02:17 02:17 WBC 14.2 H (4.0-10.5) x10^3/uL RBC 3.17 L (4.1-5.4) x10^6/uL Hgb 8.9 L (12.0-16.0) g/dL Hct 27.8 L (35-47) % MCV 87.7 (78-100) fL MCH 28.1 (26-32) pg MCHC 32.0 (32-36) g/dL RDW 14.7 H (11.5-14.0) % Plt Count 238 (150-450) x10^3/uL MPV 9.1 (7.5-11.0) fL Segmented Neutrophils 94 H (36.0-66.0) % Band Neutrophils 1 (0.0-2.0) % Lymphocytes (Manual) 1 L (24-44) % Monocytes (Manual) 4 (0.0-12.0) % Hypochromia 1+ Platelet Estimate NORMAL (NORMAL) RBC Morphology ABNORMAL Sodium 133 L (137-145) mmol/L Potassium 3.3 L (3.5-5.1) mmol/L Chloride 101 (98-107) mmol/L Carbon Dioxide 24 (22-30) mmol/L Anion Gap 10.9 (5-15) MEQ/L BUN 22 H (7-17) mg/dL Creatinine 0.75 (0.52-1.04) mg/dL Estimated GFR > 60.0 ML/MIN Glucose 118 H (74-106) mg/dL Lactic Acid 0.7 (0.4-2.0) Calcium 9.2 (8.4-10.2) mg/dL Total Bilirubin 0.50 (0.2-1.3) mg/dL AST 22 (14-36) U/L ALT 16 (0-35) U/L Alkaline Phosphatase 105 (38-126) U/L Troponin I (0.000-0.034) ng/mL Serum Total Protein 6.3 (6.3-8.2) g/dL Albumin 3.6 (3.5-5.0) g/dL Urinalys Dipstick Clnc Urine Color (YELLOW) Urine Appearance (CLEAR) Urine pH (5-6) Ur Specific Gause (1.005-1.025) POC Urine Protein Conf (Negative) Urine Ketones (NEGATIVE) Urine Nitrite (NEGATIVE) Urine Bilirubin (NEGATIVE) Urine Urobilinogen (0-1) mg/dL Urine Leukocytes (NEGATIVE) Urine WBC (Auto) (0-5) /HPF Urine RBC (Auto) (0-2) /HPF U Hyaline Cast (Auto) (0-2) /LPF U Epithel Cells (Auto) (FEW) /HPF Urine Bacteria (Auto) (NEGATIVE) /HPF Urine RBC (0-5) Jesse/ul Unidentified Crystals (NEGATIVE) /HPF Urine Mucus (Auto) (NEGATIVE) /HPF Ur Culture Indicated? Urine Glucose (NEGATIVE) mg/dL Influenza Type A Ag (NEGATIVE) Influenza Type B Ag (NEGATIVE) RSV (PCR) (Negative) SARS-CoV-2 (PCR) (NEGATIVE) ABO Group Rh Factor Antibody Screen (NEGATIVE) 04/02/22 04/02/22 04/02/22 Range/Units 02:17 02:18 02:20 WBC (4.0-10.5) x10^3/uL RBC (4.1-5.4) x10^6/uL Hgb (12.0-16.0) g/dL Hct (35-47) % MCV (78-100) fL MCH (26-32) pg MCHC (32-36) g/dL RDW (11.5-14.0) % Plt Count (150-450) x10^3/uL MPV (7.5-11.0) fL Segmented Neutrophils (36.0-66.0) % Band Neutrophils (0.0-2.0) % Lymphocytes (Manual) (24-44) % Monocytes (Manual) (0.0-12.0) % Hypochromia Platelet Estimate (NORMAL) RBC Morphology Sodium (137-145) mmol/L Potassium (3.5-5.1) mmol/L Chloride (98-107) mmol/L Carbon Dioxide (22-30) mmol/L Anion Gap (5-15) MEQ/L BUN (7-17) mg/dL Creatinine (0.52-1.04) mg/dL Estimated GFR ML/MIN Glucose (74-106) mg/dL Lactic Acid (0.4-2.0) Calcium (8.4-10.2) mg/dL Total Bilirubin (0.2-1.3) mg/dL AST (14-36) U/L ALT (0-35) U/L Alkaline Phosphatase (38-126) U/L Troponin I < 0.012 (0.000-0.034) ng/mL Serum Total Protein (6.3-8.2) g/dL Albumin (3.5-5.0) g/dL Urinalys Dipstick Clnc Urine Color (YELLOW) Urine Appearance (CLEAR) Urine pH (5-6) Ur Specific Gause (1.005-1.025) POC Urine Protein Conf (Negative) Urine Ketones (NEGATIVE) Urine Nitrite (NEGATIVE) Urine Bilirubin (NEGATIVE) Urine Urobilinogen (0-1) mg/dL Urine Leukocytes (NEGATIVE) Urine WBC (Auto) (0-5) /HPF Urine RBC (Auto) (0-2) /HPF U Hyaline Cast (Auto) (0-2) /LPF U Epithel Cells (Auto) (FEW) /HPF Urine Bacteria (Auto) (NEGATIVE) /HPF Urine RBC (0-5) Jesse/ul Unidentified Crystals (NEGATIVE) /HPF Urine Mucus (Auto) (NEGATIVE) /HPF Ur Culture Indicated? Urine Glucose (NEGATIVE) mg/dL Influenza Type A Ag NEGATIVE (NEGATIVE) Influenza Type B Ag NEGATIVE (NEGATIVE) RSV (PCR) NEGATIVE (Negative) SARS-CoV-2 (PCR) POSITIVE A (NEGATIVE) ABO Group O Rh Factor POSITIVE Antibody Screen NEGATIVE (NEGATIVE) 04/02/22 Range/Units 02:34 WBC (4.0-10.5) x10^3/uL RBC (4.1-5.4) x10^6/uL Hgb (12.0-16.0) g/dL Hct (35-47) % MCV (78-100) fL MCH (26-32) pg MCHC (32-36) g/dL RDW (11.5-14.0) % Plt Count (150-450) x10^3/uL MPV (7.5-11.0) fL Segmented Neutrophils (36.0-66.0) % Band Neutrophils (0.0-2.0) % Lymphocytes (Manual) (24-44) % Monocytes (Manual) (0.0-12.0) % Hypochromia Platelet Estimate (NORMAL) RBC Morphology Sodium (137-145) mmol/L Potassium (3.5-5.1) mmol/L Chloride (98-107) mmol/L Carbon Dioxide (22-30) mmol/L Anion Gap (5-15) MEQ/L BUN (7-17) mg/dL Creatinine (0.52-1.04) mg/dL Estimated GFR ML/MIN Glucose (74-106) mg/dL Lactic Acid (0.4-2.0) Calcium (8.4-10.2) mg/dL Total Bilirubin (0.2-1.3) mg/dL AST (14-36) U/L ALT (0-35) U/L Alkaline Phosphatase (38-126) U/L Troponin I (0.000-0.034) ng/mL Serum Total Protein (6.3-8.2) g/dL Albumin (3.5-5.0) g/dL Urinalys Dipstick Clnc MAIN LAB Urine Color YELLOW (YELLOW) Urine Appearance CLOUDY (CLEAR) Urine pH 6.0 (5-6) Ur Specific Gause 1.025 (1.005-1.025) POC Urine Protein Conf 100 (Negative) Urine Ketones SMALL-15 (NEGATIVE) Urine Nitrite POSITIVE (NEGATIVE) Urine Bilirubin NEGATIVE (NEGATIVE) Urine Urobilinogen 0.2 (0-1) mg/dL Urine Leukocytes SMALL (NEGATIVE) Urine WBC (Auto) 51-100 (0-5) /HPF Urine RBC (Auto) 26-50 (0-2) /HPF U Hyaline Cast (Auto) 0-2 (0-2) /LPF U Epithel Cells (Auto) NONE (FEW) /HPF Urine Bacteria (Auto) MANY (NEGATIVE) /HPF Urine RBC MODERATE (0-5) Jesse/ul Unidentified Crystals 2-5 (NEGATIVE) /HPF Urine Mucus (Auto) SLIGHT (NEGATIVE) /HPF Ur Culture Indicated? YES Urine Glucose NEGATIVE (NEGATIVE) mg/dL Influenza Type A Ag (NEGATIVE) Influenza Type B Ag (NEGATIVE) RSV (PCR) (Negative) SARS-CoV-2 (PCR) (NEGATIVE) ABO Group Rh Factor Antibody Screen (NEGATIVE) - Radiology Impressions Radiology Exams & Impressions: Radiology Procedures Category Date Time Status CHEST 1 VIEW (PORTABLE) Stat Exams 04/02/22 01:55 Completed Assessment/Plan (1) Pyelonephritis Current Visit: Yes Status: Acute Assessment & Plan: On day #2 levaquin. Culture pending. Code(s): N12 - TUBULO-INTERSTITIAL NEPHRITIS, NOT SPCF ACUTE OR CHRONIC (2) COVID-19 Current Visit: Yes Status: Acute Assessment & Plan: She was positive last month, this is likely just persistent positive test. Code(s): U07.1 - COVID-19 (3) Hypokalemia Current Visit: Yes Status: Acute Code(s): E87.6 - HYPOKALEMIA (4) Leukocytosis Current Visit: Yes Status: Acute Qualifiers: Leukocytosis type: unspecified Qualified Code(s): D72.829 - Elevated white blood cell count, unspecified Code(s): D72.829 - ELEVATED WHITE BLOOD CELL COUNT, UNSPECIFIED (5) Urinary retention Current Visit: Yes Status: Acute Code(s): R33.9 - RETENTION OF URINE, UNSPECIFIED (6) Anemia Current Visit: No Status: Acute Qualifiers: Anemia type: iron deficiency Iron deficiency anemia type: other iron deficiency Qualified Code(s): D50.8 - Other iron deficiency anemias Assessment & Plan: chronic, on Fe po. Code(s): D64.9 - ANEMIA, UNSPECIFIED (7) Barretts esophagus Current Visit: No Status: Chronic Qualifiers: Rose's esophagus type: without dysplasia Qualified Code(s): K22.70 - Rose's esophagus without dysplasia Assessment & Plan: she recently (last week) had repeat EGD, is supposed to be on carafate, she says 2g, ACHS, liquid. Code(s): K22.70 - ROSE'S ESOPHAGUS WITHOUT DYSPLASIA (8) Generalized weakness Current Visit: Yes Status: Acute Assessment & Plan: Besides her acute illness, she also had ankle fx earlier this year. Will need PT after acute illness. Code(s): R53.1 - WEAKNESS
[2022-04-02] MEDS ORDERED: Cozaar 50 MG PO PRN (09:15)
[2022-04-02] MEDS ORDERED: NON-FORMULARY ITEM (Zinc [Zinc] 50 MG Tablet) PO SCH (10:00)
[2022-04-02] MEDS ORDERED: NON-FORMULARY ITEM (Cholecalciferol (Vitamin D3)** [Vitamin D***] 400 UNIT Tablet) PO SCH (10:00)
[2022-04-02] MEDS: Zinc Gluconate 50 MG PO SCH (10:05)
[2022-04-02] MEDS: FEOSOL 325 MG PO SCH ×2 (10:05→21:28)
[2022-04-02] MEDS: VITAMIN D PO SCH (10:05)
[2022-04-02] MEDS: Pepcid 20 MG VIAL IV SCH ×2 (10:06→21:28)
[2022-04-02] MEDS: Vitamin C 500 MG PO SCH (10:06)
[2022-04-02] MEDS: Sodium Chloride 0.9% 1000 ML 1,000 ML IV SCH ×2 (12:57→22:56)
[2022-04-02] MEDS: TORAdol 30 mg Injection IV PRN ×2 (13:41→22:41)
--- NOTE | 2022-04-02 15:00 | XRAY ---
Indication: Elevated d-dimer. Two-dimensional sonogram and color Doppler imaging of the major venous vessels of the left and right leg performed. Comparison: None No thrombus seen in the examined deep venous vessels of the left and right leg including greater saphenous vein. Veins demonstrate normal compressibility. Venous waveforms are normal with and without augmentation. Impression: Left and right leg negative for DVT.
[2022-04-02] MEDS: TYLENOL 325 MG PO PRN (20:17)
[2022-04-02] MEDS: Levofloxacin 500MG/100ML D5W 500 MG/100 ML BAG IV SCH (21:31)
[2022-04-03] MEDS: TORAdol 30 mg Injection IV PRN ×2 (04:05→14:42)
[2022-04-03] MEDS: TYLENOL 325 MG PO PRN ×2 (04:16→18:55)
[2022-04-03 05:29] LABS: Absolute Neutrophil Ct (ANC) 6.45 x10^3/uL (1.4-6.9); Basophil (Absolute #) 0.02 x10^3/uL (0-0.4); Eosinophil % 1.8 % (0.00-5.0); Eosinophil (Absolute #) 0.15 x10^3/uL (0-0.5); Hematocrit 26.8 % (35-47); Hemoglobin 8.6 g/dL (12.0-16.0); Lymphocyte (Absolute #) 0.46 x10^3/uL (1.0-4.6); Lymphocytes % 5.6 % (24.0-44.0); Mean Cell Volume 86.5 fL (78-100); Mean Corpuscular Hemoglobin 27.7 pg (26-32); Mean Corpuscular Hgb Concent. 32.1 g/dL (32-36); Mean Platelet Volume 9.2 fL (7.5-11.0); Monocytes % 13.4 % (0.0-12.0); Neutrophil % 78.6 % (36.0-66.0); Platelet Count 223 x10^3/uL (150-450); Red Cell Distribution Width 14.9 % (11.5-14.0); White Blood Count 8.2 x10^3/uL (4.0-10.5)
[2022-04-03 05:56] LABS: ALKALINE PHOSPHATASE 92 U/L (38-126); ANION GAP 10.2 MEQ/L (5-15); BLOOD UREA NITROGEN 13 mg/dL (7-17); CHLORIDE 108 mmol/L (98-107); Calcium 7.9 mg/dL (8.4-10.2); Carbon Dioxide 21 mmol/L (22-30); Creatinine 1 0.64 mg/dL (0.52-1.04); EST GLOMERULAR FILTRATION RATE > 60.0 ML/MIN; Glucose 100 mg/dL (74-106); MAGNESIUM 2.1 mg/dL (1.6-2.3); Potassium 3.4 mmol/L (3.5-5.1); SGOT/AST 29 U/L (14-36); SGPT/ALT 18 U/L (0-35); SODIUM 136 mmol/L (137-145); Total Protein 5.6 g/dL (6.3-8.2)
[2022-04-03] MEDS: Carafate SUSPENSION 1000 MG/10 ML PO SCH ×4 (07:14→22:15)
[2022-04-03 08:07] LABS: Slide Review 1 YES
[2022-04-03] MEDS: Sodium Chloride 0.9% 1000 ML 1,000 ML IV SCH ×3 (08:48→22:18)
[2022-04-03] MEDS: Pepcid 20 MG VIAL IV SCH ×2 (10:44→22:17)
[2022-04-03] MEDS: Zinc Gluconate 50 MG PO SCH (12:10)
[2022-04-03] MEDS: FEOSOL 325 MG PO SCH ×2 (12:10→22:17)
[2022-04-03] MEDS: VITAMIN D PO SCH (12:10)
[2022-04-03] MEDS: Vitamin C 500 MG PO SCH (12:11)
[2022-04-03] MEDS: Levofloxacin 500MG/100ML D5W 500 MG/100 ML BAG IV SCH (22:24)
--- NOTE | 2022-04-03 23:51 | PCM.NOTE ---
Date and Time: 04/03/222337 Subjective Assessment: Patient admitted for pyelonephritis and extreme fatigue states she is feeling better but still some dull right flank pain and fatigue. WBC is down from 14,000 to 8,000 with overnight IV hydration and Levaquin. Patient has chronic anemia and GERD esophagitis . Is on Iron at home. Tolerating regular diet ,is eating biscutis and gravy . Denies melana or abnormal stools. Hgb on admission was 8.9 now 8.6. Is recovering from Covid now out of isolation. Objective Exam General Appearance: no apparent distress Neurologic Exam: alert, oriented x 3, agitation Skin Exam: normal color (suntanned), warm, dry Respiratory Exam: normal breath sounds Cardiovascular Exam: regular rate/rhythm Gastrointestinal/Abdomen Exam: soft, normal bowel sounds, tenderness (right flank) Extremity Exam: normal inspection Back Exam: CVA tenderness (right) OBJECTIVE DATA Vital Signs: Vital Signs - 24 hr Temp Pulse Resp BP Pulse Ox 04/03/22 19:30 100.5 F 79 18 167/75 96 04/03/22 16:00 99.1 F 73 26 H 166/70 97 04/03/22 11:21 98.2 F 71 16 129/57 96 04/03/22 07:59 97.9 F 70 16 131/61 94 L 04/03/22 07:55 94 L 04/03/22 04:00 100.5 F 75 19 140/65 96 04/02/22 23:42 100.7 F 84 18 135/62 95 Pain Assessment - Last Documented Pain Intensity 0 Pain Scale Used 0-10 Pain Scale Intake and Output: Intake & Output 04/01/22 04/02/22 04/03/22 04/04/22 11:59 11:59 11:59 11:59 Intake Total 360 3616 1663 Output Total 2550 1000 Balance 360 1066 663 Weight 60.1 kg Lab Results: Lab Results-Last 24 Hours 04/03/22 04/03/22 Range/Units 05:05 05:05 WBC 8.2 (4.0-10.5) x10^3/uL RBC 3.10 L (4.1-5.4) x10^6/uL Hgb 8.6 L (12.0-16.0) g/dL Hct 26.8 L (35-47) % MCV 86.5 (78-100) fL MCH 27.7 (26-32) pg MCHC 32.1 (32-36) g/dL RDW 14.9 H (11.5-14.0) % Plt Count 223 (150-450) x10^3/uL MPV 9.2 (7.5-11.0) fL Gran % 78.6 H (36.0-66.0) % Immature Gran % (Auto) 0.4 (0.00-0.4) % Nucleat RBC Rel Count 0.0 (0.00-0.1) % Eos # (Auto) 0.15 (0-0.5) x10^3/uL Immature Gran # (Auto) 0.03 (0.00-0.03) x10^3u/L Absolute Lymphs (auto) 0.46 L (1.0-4.6) x10^3/uL Absolute Monos (auto) 1.10 (0.0-1.3) x10^3/uL Absolute Nucleated RBC 0.00 (0.00-0.01) x10^3u/L Lymphocytes % 5.6 L (24.0-44.0) % Monocytes % 13.4 H (0.0-12.0) % Eosinophils % 1.8 (0.00-5.0) % Basophils % 0.2 (0.0-0.4) % Absolute Granulocytes 6.45 (1.4-6.9) x10^3/uL Basophils # 0.02 (0-0.4) x10^3/uL Sodium 136 L (137-145) mmol/L Potassium 3.4 L (3.5-5.1) mmol/L Chloride 108 H (98-107) mmol/L Carbon Dioxide 21 L (22-30) mmol/L Anion Gap 10.2 (5-15) MEQ/L BUN 13 (7-17) mg/dL Creatinine 0.64 (0.52-1.04) mg/dL Estimated GFR > 60.0 ML/MIN Glucose 100 (74-106) mg/dL Calcium 7.9 L (8.4-10.2) mg/dL Magnesium 2.1 (1.6-2.3) mg/dL Total Bilirubin 0.20 (0.2-1.3) mg/dL AST 29 (14-36) U/L ALT 18 (0-35) U/L Alkaline Phosphatase 92 (38-126) U/L Serum Total Protein 5.6 L (6.3-8.2) g/dL Albumin 3.0 L (3.5-5.0) g/dL Slides for Path Review YES Radiology Exams: Radiology Procedures Category Date Time Status CHEST 1 VIEW (PORTABLE) Stat Exams 04/02/22 01:55 Completed VENOUS BILATERAL EXTREMITY [US] Routine Exams 04/02/22 14:38 Completed Multi-Disciplinary Progress Notes: Multi-Disciplinary Progress Notes 04/03/22 09:55 Case Management Note by Fely Mejía S/W PATIENT- SHE CONTINUES TO DENY ANY NEW NEEDS AT TIME OF DC Initialized on 04/03/22 09:55 - END OF NOTE 04/03/22 07:55 (created 04/03/22 12:48) Respiratory Note by Katy Britton Patient states nursing took continuous pulse ox through the night Initialized on 04/03/22 12:48 - END OF NOTE Assessment/Plan (1) Pyelonephritis Current Visit: Yes Status: Acute Assessment & Plan: improved on IV Levaquin,urine cult pending Code(s): N12 - TUBULO-INTERSTITIAL NEPHRITIS, NOT SPCF ACUTE OR CHRONIC (2) Anemia Current Visit: No Status: Acute Qualifiers: Anemia type: iron deficiency Iron deficiency anemia type: other iron deficiency Qualified Code(s): D50.8 - Other iron deficiency anemias Assessment & Plan: chronic,has been on iron at home- monitor Code(s): D64.9 - ANEMIA, UNSPECIFIED (3) Irritability Current Visit: Yes Status: Acute Assessment & Plan: frustrated with illness,offered Ativan but patient refused
[2022-04-04] MEDS: Sodium Chloride 0.9% W/ 20 mEq KCl/LITER 1,000 ML IV SCH ×2 (00:55→13:01)
[2022-04-04 05:27] LABS: Absolute Neutrophil Ct (ANC) 3.48 x10^3/uL (1.4-6.9); Basophil (Absolute #) 0.03 x10^3/uL (0-0.4); Eosinophil % 9.9 % (0.00-5.0); Eosinophil (Absolute #) 0.53 x10^3/uL (0-0.5); Lymphocyte (Absolute #) 0.69 x10^3/uL (1.0-4.6); Lymphocytes % 12.9 % (24.0-44.0); Mean Cell Volume 85.9 fL (78-100); Mean Corpuscular Hemoglobin 27.6 pg (26-32); Mean Corpuscular Hgb Concent. 32.1 g/dL (32-36); Mean Platelet Volume 9.1 fL (7.5-11.0); Monocyte (Absolute #) 0.62 x10^3/uL (0.0-1.3); Monocytes % 11.6 % (0.0-12.0); Neutrophil % 64.8 % (36.0-66.0); Platelet Count 256 x10^3/uL (150-450); Red Blood Count 3.26 x10^6/uL (4.1-5.4); Red Cell Distribution Width 14.6 % (11.5-14.0); White Blood Count 5.4 x10^3/uL (4.0-10.5)
[2022-04-04 05:54] LABS: ALBUMIN 3.1 g/dL (3.5-5.0); ALKALINE PHOSPHATASE 92 U/L (38-126); ANION GAP 9.7 MEQ/L (5-15); BLOOD UREA NITROGEN 7 mg/dL (7-17); CHLORIDE 110 mmol/L (98-107); Calcium 7.9 mg/dL (8.4-10.2); Carbon Dioxide 22 mmol/L (22-30); Creatinine 1 0.55 mg/dL (0.52-1.04); EST GLOMERULAR FILTRATION RATE > 60.0 ML/MIN; Glucose 97 mg/dL (74-106); Potassium 3.2 mmol/L (3.5-5.1); SGOT/AST 23 U/L (14-36); SGPT/ALT 17 U/L (0-35); SODIUM 138 mmol/L (137-145)
[2022-04-04] MEDS: Carafate SUSPENSION 1000 MG/10 ML PO SCH ×4 (07:47→23:12)
[2022-04-04] MEDS ORDERED: Klor Con PO ONE (08:27)
[2022-04-04] MEDS: Pepcid 20 MG VIAL IV SCH ×2 (11:27→22:22)
[2022-04-04] MEDS: VITAMIN D PO SCH (11:27)
[2022-04-04] MEDS: Vitamin C 500 MG PO SCH (11:28)
[2022-04-04] MEDS: FEOSOL 325 MG PO SCH ×2 (11:28→23:11)
[2022-04-04] MEDS: Zinc Gluconate 50 MG PO SCH (11:29)
[2022-04-04] MEDS: TORAdol 30 mg Injection IV PRN (16:18)
[2022-04-04] MEDS: Levofloxacin 500MG/100ML D5W 500 MG/100 ML BAG IV SCH (22:22)
[2022-04-05] MEDS: Sodium Chloride 0.9% W/ 20 mEq KCl/LITER 1,000 ML IV SCH (03:47)
[2022-04-05 05:46] LABS: Absolute Neutrophil Ct (ANC) 2.51 x10^3/uL (1.4-6.9); Basophil (Absolute #) 0.03 x10^3/uL (0-0.4); Eosinophil % 13.8 % (0.00-5.0); Eosinophil (Absolute #) 0.62 x10^3/uL (0-0.5); Hematocrit 27.5 % (35-47); Hemoglobin 8.8 g/dL (12.0-16.0); Lymphocyte (Absolute #) 0.89 x10^3/uL (1.0-4.6); Lymphocytes % 19.9 % (24.0-44.0); Mean Cell Volume 86.2 fL (78-100); Mean Corpuscular Hemoglobin 27.6 pg (26-32); Mean Platelet Volume 8.9 fL (7.5-11.0); Monocyte (Absolute #) 0.41 x10^3/uL (0.0-1.3); Monocytes % 9.2 % (0.0-12.0); Platelet Count 272 x10^3/uL (150-450); Red Blood Count 3.19 x10^6/uL (4.1-5.4); Red Cell Distribution Width 14.6 % (11.5-14.0); White Blood Count 4.5 x10^3/uL (4.0-10.5)
[2022-04-05 06:03] LABS: ALBUMIN 3.1 g/dL (3.5-5.0); ALKALINE PHOSPHATASE 84 U/L (38-126); ANION GAP 8.9 MEQ/L (5-15); BLOOD UREA NITROGEN 5 mg/dL (7-17); CHLORIDE 112 mmol/L (98-107); Calcium 8.2 mg/dL (8.4-10.2); Carbon Dioxide 21 mmol/L (22-30); Creatinine 1 0.51 mg/dL (0.52-1.04); EST GLOMERULAR FILTRATION RATE > 60.0 ML/MIN; Glucose 102 mg/dL (74-106); Potassium 3.7 mmol/L (3.5-5.1); SGOT/AST 22 U/L (14-36); SGPT/ALT 16 U/L (0-35); SODIUM 139 mmol/L (137-145); Total Protein 5.8 g/dL (6.3-8.2)
[2022-04-05] MEDS: Carafate SUSPENSION 1000 MG/10 ML PO SCH ×2 (08:12→12:07)
[2022-04-05] MEDS: Pepcid 20 MG VIAL IV SCH (08:13)
[2022-04-05 08:44] LABS: Iron 48 ug/dL (37-170); Iron Saturation 19 % (20-39); TIBC 255 ug/dL (265-462)
[2022-04-05] MEDS: TYLENOL 325 MG PO PRN (09:29)
[2022-04-05] MEDS: TORAdol 30 mg Injection IV PRN (09:33)
[2022-04-05 12:03] VITALS: BP 187/76; PULSE 71; O2SAT 97
[2022-04-05] MEDS: Vitamin C 500 MG PO SCH (12:06)
[2022-04-05] MEDS: FEOSOL 325 MG PO SCH (12:06)
[2022-04-05] MEDS: VITAMIN D PO SCH (12:06)
[2022-04-05] MEDS: Zinc Gluconate 50 MG PO SCH (12:07)
--- NOTE | 2022-04-14 06:45 | PCM.DS ---
Discharge Summary Date of Admission: 04/02/22 09:05 Date of Discharge: 04/05/2022 Admitting Physician: EREN MORENO Primary Care Provider: EREN MORENO Allergies Allergies No Known Drug Allergies Allergy (Verified 04/02/22 01:44) Hospital Summary - Hospital Course Hospital Course: Pt. admitted for pyelonephritis and covid positive, pt. initiated on iv antibiotics, pt. symptoms improved to the point she was stable for discharge. - Vitals & Intake/Output Vital Signs: Vital Signs Temperature 97.5 F 04/05/22 12:00 Pulse Rate 71 04/05/22 12:00 Respiratory Rate 18 04/05/22 12:00 Blood Pressure 187/76 04/05/22 12:00 O2 Sat by Pulse Oximetry 97 04/05/22 12:00 - Lab Result Diagrams: 04/05/22 05:15 04/05/22 05:15 Micro Results-Entire Visit: Microbiology 04/02/22 02:18 Blood Culture Gram Stain - Final Blood Not Reportable Blood Culture - Final NO GROWTH 04/02/22 02:17 Blood Culture Gram Stain - Final Blood Not Reportable Blood Culture - Final NO GROWTH 04/02/22 02:34 Urine Culture - Final Urine, Catheterized Escherichia Coli - Procedures and Test Procedures and Tests throughout Hospitalization: Therapy Orders & Screens 04/02/22 05:52 OT Screen per Nursing Assess ONCE Comment: Protocol Order Physician Instructions: Greater than 3 points order OT Admission Screening Reason For Exam: Triggered on Admission Diagnosis: Pyelonephritis, hypokalemia Open Wound/Cellutlitis/Pressure Ulcers: No Acute Fx/ORIF/Change in wt bearing status: No Severe MUSCULOSKELETAL pain: No ADL Dysfunction: Yes Acute CVA w/Hemiparesis/Hemiplegia: No Decreased Functional Mobility/Strength: Yes Sprain/Strain: No Acute Post-op Mobility Dysfunction: No Total Points: 4 PT Screen per Nursing Assess ONCE Comment: Protocol Order Physician Instructions: Greater than 3 points order PT Admission Screenin Reason For Exam: Triggered on Admission Diagnosis: Pyelonephritis, hypokalemia Open Wound/Cellutlitis/Pressure Ulcers: No Acute Fx/ORIF/Change in wt bearing status: No Severe MUSCULOSKELETAL pain: No ADL Dysfunction: Yes Acute CVA w/Hemiparesis/Hemiplegia: No Decreased Functional Mobility/Strength: Yes Sprain/Strain: No Acute Post-op Mobility Dysfunction: No Total Points: 4 Discharge Exam General Appearance: no apparent distress, alert Neurologic Exam: alert, oriented x 3, cooperative, normal mood/affect, nml cerebellar function, sensation nml, No motor deficits Eye Exam: PERRL, EOMI, eyes nml inspection Ears, Nose, Throat Exam: normal ENT inspection, pharynx normal, moist mucous membranes Neck Exam: normal inspection, non-tender, supple, full range of motion Respiratory Exam: normal breath sounds, lungs clear, No respiratory distress Cardiovascular Exam: regular rate/rhythm, normal heart sounds Gastrointestinal/Abdomen Exam: soft, No tenderness, No mass Pelvic Exam: deferred Rectal Exam: deferred Back Exam: normal inspection, normal range of motion, No CVA tenderness, No vertebral tenderness Extremity Exam: normal inspection, normal range of motion Skin Exam: normal color, warm, dry Final Diagnosis/Problem List - Final Discharge Diagnosis/Problem (1) COVID-19 Status: Acute Code(s): U07.1 - COVID-19 (2) Generalized weakness Status: Acute Code(s): R53.1 - WEAKNESS (3) Pyelonephritis Status: Acute Code(s): N12 - TUBULO-INTERSTITIAL NEPHRITIS, NOT SPCF ACUTE OR CHRONIC - Discharge Discharge Date: 04/05/22 Disposition: Home, Self-Care Condition: Stable Prescriptions: New Levofloxacin [Levofloxacin 500 MG Tablet] 500 mg PO DAILY 10 Days #10 tablet Continue Losartan Potassium [Cozaar] 25 mg PO DAILY PRN PRN PRN Reason: htn Cholecalciferol (Vitamin D3) [Vitamin D] 0 unit PO DAILY Ascorbic Acid 500 mg [Vitamin C 500 MG] 0 mg PO DAILY Zinc 0 mg PO DAILY Sucralfate 1000 mg/10 ml [Carafate SUSPENSION 1000 MG/10 ML] 2,000 mg PO ACHS Changed Ferrous Sulfate 325 mg [Feosol 325 mg] 325 mg PO TID 30 Days #90 tablet Instructions: Urinary Tract Infection, Adult (DC) Additional Instructions: FOLLOW UP WITH PRIMARY CARE PHYSICIAN Follow up with: EREN MORENO [Primary Care Provider] -
== END 2022-04-05 13:00 | disposition home or self-care (01) | DRG 178 ==
LOC: ED 01:36 → MED SURG 04:40 → OBSVTOIN 09:05 → MED SURG 14:26
PROVIDERS: ADMIT Family Medicine; ATTEND Family Medicine
DX: U07.1 COVID-19 (principal); N12 Tubulo-interstitial nephritis, not specified as acute or chronic; I10 Essential (primary) hypertension; E87.6 Hypokalemia; D64.9 Anemia, unspecified; D72.829 Elevated white blood cell count, unspecified; R53.1 Weakness; E78.5 Hyperlipidemia, unspecified; K22.70 Barrett's esophagus without dysplasia; F41.9 Anxiety disorder, unspecified; R33.9 Retention of urine, unspecified; M79.652 Pain in left thigh; Z79.899 Other long term (current) drug therapy; Z20.828 Contact with and (suspected) exposure to other viral communicable diseases
CPT/HCPCS: 0241U; 36000; 36415; 51702; 71045; 80053; 81015; 82607; 83540; 83550; 83605; 83735; 84132; 84484; 85025; 85379; 86850; 86900; 86901; 87040; 87077; 87086; 87186; 93005; 93041; 93970; 94760; 94762; 96360; 96361; 96365; 96367; 96368; 96374; 99285; J1885; J1956; J3475; J3480; A9270-GY

== ENCOUNTER 2022-12-04 17:16 | Emergency (ER) | payer MEDICARE, BC ==
[2022-12-04] MEDS ORDERED: NORCO 5/325 MG PO ONE ×2 (17:55→19:36)
--- NOTE | 2022-12-04 18:00 | ERPHSYRPT ---
- History of Present Illness Source: patient, EMS Exam Limitations: no limitations Patient Subjective Stated Complaint: PT STATES SHE MISSED AND STEP AND FELL, CO LEFT HIP AND ARM PAIN, Triage Nursing Assessment: PT ALERT, ARRIVED PER AMBULANCE, SKIN W/D/P. HAS ABRASION TO LEFT ARM, TENDERNESS TO LEFT HIP Method of Injury: fell Occurred: just prior to arrival Quality: sharpness Severity of Pain-Max: moderate Severity of Pain-Current: moderate Lower Extremities Pain: hip: left Modifying Factors: Improves With: immobilization, rest. Worsens With: movement Associated Symptoms: unable to bear weight Hx Tetanus, Diphtheria Vaccination/Date Given: Yes Hx Influenza Vaccination/Date Given: No Hx Pneumococcal Vaccination/Date Given: No Immunizations Up to Date: Yes <BRY BECKHAM - Last Filed: 12/04/22 20:52> <NARINDER REYNA - Last Filed: 12/04/22 23:24> - History of Present Illness Time Seen by Provider: 12/04/22 17:19 Physician History: 77 years old fairly healthy female presented in the ER with chief complaint of left hip and thigh pain after she missed a step and fell on concrete. Did not hit her head, no loss of consciousness. She also hit her left elbow but has some bruising without pain and intact range of motion. Patient was not able to get up because of pain and is brought in the ER by EMS. Patient does not have any shortening of left lower extremity. No injury anywhere else. (BRY BECKHAM) Allergies/Adverse Reactions: Proton Pump Inhibitors Allergy (Verified 12/04/22 17:23) Aligykr-CZN-OjZ Reductase Inhibitor Allergy (Verified 12/04/22 17:23) Travel Risk - International Travel Have you traveled outside of the country in past 3 weeks: No - Coronavirus Screening Are you exhibiting any of the following symptoms?: No Close contact with a COVID-19 positive Pt in past 14-21 Days: No - Vaccine Status Have you recieved a Covid-19 vaccination: No <BRY BECKHAM - Last Filed: 12/04/22 20:52> - Review of Systems Constitutional: No Symptoms Eyes: No Symptoms Ears, Nose, & Throat: No Symptoms Respiratory: No Symptoms Cardiac: No Symptoms Abdominal/Gastrointestinal: No Symptoms Genitourinary Symptoms: No Symptoms Musculoskeletal: Fall, Injury, Joint Pain Skin: No Symptoms Neurological: No Symptoms Endocrine: No Symptoms Hematologic/Lymphatic: No Symptoms Immunological/Allergic: No Symptoms <BRY BECKHAM - Last Filed: 12/04/22 20:52> - Past Medical History Pertinent Past Medical History: Yes Neurological History: No Pertinent History ENT History: No Pertinent History Cardiac History: Hypertension Respiratory History: No Pertinent History Endocrine Medical History: No Pertinent History Musculoskeletal History: Fractures GI Medical History: GERD, Hernia, Other History: No Pertinent History Psycho-Social History: No Pertinent History Female Reproductive Disorders: No Pertinent History Other Medical History: STATES SHE DOESN'T TAKE HER BLOOD PRESSURE MEDS REGULARLY. Barretts esophagus - Past Surgical History Past Surgical History: Yes Neuro Surgical History: No Pertinent History Cardiac: No Pertinent History Respiratory: No Pertinent History Gastrointestinal: No Pertinent History Genitourinary: No Pertinent History Musculoskeletal: No Pertinent History Female Surgical History: No Pertinent History Other Surgical History: colonoscopies-two ( clear), esoph. ablations r/t barretts esophagus - Social History Smoking Status: Never smoker Exposure to second hand smoke: No Drug Use: none Patient Lives Alone: No <BRY BECKHAM - Last Filed: 12/04/22 20:52> - Physical Exam General Appearance: no apparent distress, alert Eyes, Ears, Nose, Throat Exam: normal ENT inspection Neck Exam: normal inspection, non-tender, supple, full range of motion Cardiovascular/Respiratory Exam: chest non-tender, normal breath sounds, regular rate/rhythm Gastrointestinal/Abdominal Exam: non-tender, soft Back Exam: normal inspection, normal range of motion, other (Bruising left elbow with minimal tenderness. Intact range of motion. Distal neurovascular intact.) Hips Exam: right: non-tender, left: bone tenderness, pain, soft tissue tenderness, other (No shortening or external rotation.), bilateral: normal inspection, normal range of motion Legs Exam: bilateral leg: non-tender, normal inspection, normal range of motion, no evidence of injury Knees Exam: bilateral knee: non-tender, normal inspection, normal range of motion, no evidence of injury Ankle Exam: bilateral ankle: non-tender, normal inspection, normal range of motion, no evidence of injury Neuro/Tendon Exam: normal sensation, normal motor functions, normal tendon functions Mental Status Exam: alert, oriented x 3, cooperative Skin Exam: normal color SpO2 Interpretation: normal SpO2: 98 O2 Delivery: Room Air <BRY BECKHAM - Last Filed: 12/04/22 20:52> - Nursing Vital Signs Nursing Vital Signs: Initial Vital Signs Temperature 98.8 F 12/04/22 17:22 Pulse Rate 87 12/04/22 17:22 Respiratory Rate 18 12/04/22 17:22 Blood Pressure 135/98 12/04/22 17:22 O2 Sat by Pulse Oximetry 98 12/04/22 17:22 Pain Scale Pain Intensity 10 - CT Exams Pelvis CT Interpretation: Tele-radiologist Report, Fracture (left pubic ramus nondisplaced. ) <NARINDER REYNA - Last Filed: 12/04/22 23:24> Ordered Tests: Active Orders 24 hr Category Date Time Status FEMUR Stat Exams 12/04/22 17:55 Completed HIP UNI (2V) INCL PEL IF DONE Stat Exams 12/04/22 17:54 Completed PELVIS WITHOUT CONTRAST [CT] Stat Exams 12/04/22 21:09 Completed Medication Summary Discontinued Medications Generic Name Dose Route Start Last Admin Trade Name Caroline PRN Reason Stop Dose Admin Hydrocodone Bitart/Acetaminophen 1 tab 12/04/22 17:55 12/04/22 18:06 Hydrocodone/Apap 5/325 1 Tab Tablet PO 12/04/22 17:56 1 tab STAT ONE Administration Hydrocodone Bitart/Acetaminophen Confirm 12/04/22 18:05 Hydrocodone/Apap 5/325 1 Tab Tablet Administered 12/04/22 18:06 Dose 1 tab .ROUTE .STK-MED ONE Hydrocodone Bitart/Acetaminophen 2 tab 12/04/22 19:36 12/04/22 19:50 Hydrocodone/Apap 5/325 1 Tab Tablet PO 12/04/22 19:37 2 tab SENT HOME W/ PATIENT ONE Administration Hydrocodone Bitart/Acetaminophen Confirm 12/04/22 19:45 Hydrocodone/Apap 5/325 1 Tab Tablet Administered 12/04/22 19:46 Dose 2 tab .ROUTE .STK-MED ONE Morphine Sulfate 4 mg 12/04/22 20:19 12/04/22 20:32 Morphine Sulfate 4 Mg/Ml Injection IM 12/04/22 20:20 4 mg STAT ONE Administration Morphine Sulfate Confirm 12/04/22 20:31 Morphine Sulfate 4 Mg/Ml Injection Administered 12/04/22 20:32 Dose 4 mg .ROUTE .STK-MED ONE - Progress Progress: improved Counseled pt/family regarding: diagnosis, need for follow-up, rad results <BRY BECKHAM - Last Filed: 12/04/22 20:52> - Progress Progress: improved, re-examined Discussed with Dr.: Other (Stephen Mcbride and Mainor) Will see patient in: hospital (full admit) Counseled pt/family regarding: lab results, diagnosis, need for follow-up, rad results <NARINDER REYNA - Last Filed: 12/04/22 23:24> - Progress Progress Note: 12/04/22 20:23 77-year-old is evaluated for ground-level fall with injury to left hip and elbow. She is complaining of pain in the hip but not in the elbow. She has no limb shortening or external rotation. Given symptomatic treatment, feeling better on reevaluation. X-rays left hip and femur negative for fracture dislocation. I believe patient has contusion, recommended Tylenol/ibuprofen, weightbearing as tolerated and outpatient follow-up. Discussed signs symptoms of worsening needing return to ER which she seems understanding. Right before discharge patient stated her pain is 10 out of 10 and she cannot move it. She is probably having some spasms. I have given her morphine with no significant relief. I will obtain CT pelvis to make sure she does not have any occult fracture. 12/04/22 20:53 Care is transferred to Dr. Stratton at shift change for final disposition. (BRY BECKHAM) Taken over at change of shift from Dr. Beckham and found to have Fx on CT. after intro , discussion of remaining tests. Hx confirmed with family independently. COnsulting with Ortho at to have them also look at CT. 12/04/22 22:22 12/04/22 22:24 Abd nontender withotu peritineal signs. 12/04/22 23:[address] Hayward on Trauma surg after consulting also with Dr. Lombardo on Ortho and all agree with transfer for pain control and observation at [facility]. discussed with pt and family and they agree as well. (NARINDER REYNA) Medical Desision Making - Independent Historian Additional History obtained from: EMS - Discussion of managment Reviewed:: Test results Agreed on:: Treatment plan, need for follow-up - Diagnostic Testing Diagnostic test were ordered, analyzed, and reviewed by me: Yes Radiological Interpretation: Interpreted by me, Reviewed by me - Risk of complications Low Risk: Low risk of morbidity from additional dx testing or treatment <BRY BECKHAM - Last Filed: 12/04/22 20:52> - Independent Historian Additional History obtained from: Family - Discussion of managment Care discussed with:: specialist Reviewed:: Test results Agreed on:: Treatment plan, need for follow-up, decision to admit Will see patient: in hospital - Risk of complications The pt has a high risk of morbidity or mortality based on: Drug therapy requiring intensive monitoring for toxicity, Decision regarding hospitilization or escalation of hosp level of care <NARINDER REYNA - Last Filed: 12/04/22 23:24> - Departure Departure Disposition: Home Critical Care Time: No <BRY BECKHAM - Last Filed: 12/04/22 20:52> - Departure Departure Disposition: Transfer Critical Care Time: No <NARINDER REYNA - Last Filed: 12/04/22 23:24> - Departure Clinical Impression: Fall, Contusion, hip and thigh, Fracture of left inferior pubic ramus Condition: Stable Referrals: EREN MORENO [Primary Care Provider] - Follow Up with PCP/3 days ORTHO - SURESH PADILLA NP [NON-STAFF PHY W/O PRIVILEGES] - [facility]-Ortho [id number] Instructions: Contusion (DC), Preventing Falls in Older Adults Additional Instructions: Take Tylenol as needed for pain. Follow-up with primary care/Ortho for reevaluation. Return to ER for any worsening. Prescriptions: Hydrocodone/Acetaminophen [Hydrocodone-Acetamin 5-325 mg] 1 tab PO Q6HPRN PRN 3 Days #12 tablet MDD 4 PRN Reason: Pain
[2022-12-04] MEDS ORDERED: NORCO 5/325 MG ONE ×2 (18:05→19:45)
[2022-12-04] MEDS ORDERED: MORPHINE SULFATE 4 MG INJ IM ONE (20:19)
[2022-12-04] MEDS ORDERED: MORPHINE SULFATE 4 MG INJ ONE (20:31)
--- NOTE | 2022-12-04 22:01 | XRAY ---
CLINICAL HISTORY:Fall, left hip pain. COMPARISON:None; TECHNIQUES:CT scan of the pelvis was performed without IV contrast. Coronal and sagittal reconstructive images were obtained. DLP:421.8 mGy*cm, CTDI:11.9 m Gy; FINDINGS: Fracture of the body of left pubic bone close to pubic symphysis with a small fragment and minimal collection/soft tissue stranding adjacent to the fractured site. Suspicion of fracture of the outer cortex of left inferior pubic ramus seen in form of buckling. Both hip joints show mild osteoarthritic changes. The joint spaces are normal. No loose bodies. There is no evidence of joint effusion. Bilateral sacroiliac joints appear normal. No lytic or sclerotic bone lesions. IMPRESSION: Fracture of the body of left pubic bone close to pubic symphysis with a small fragment and minimal collection/soft tissue stranding adjacent to the fractured site. Suspicion of fracture of the outer cortex of left inferior pubic ramus seen in the form of buckling. Electronically Signed by: Bushra Tejeda MD. (12/04/2022 20:55:42 PIPELINE DISPATCH OPERATOR)
--- NOTE | 2022-12-04 22:27 | XRAY ---
Indication: Pain following fall. Comparison: None AP pelvis and 2 view left hip demonstrates tiny cortical fracture superior aspect left pubis symphysis. Elsewhere osteopenia and moderate lower lumbar degenerative changes. No other bony, articular, or soft tissue abnormalities.
--- NOTE | 2022-12-04 22:27 | XRAY ---
Indication: Pain following fall. Comparison: None 2 view left femur demonstrates osteopenia, mild tricompartmental knee degenerative changes, small posterior fabella, and minimal scattered vascular calcifications. No other bony, articular, or soft tissue abnormalities.
[2022-12-05 00:05] LABS: Absolute Neutrophil Ct (ANC) 9.68 x10^3/uL (1.4-6.9); BASOPHIL % 0.3 % (0.0-0.4); Basophil (Absolute #) 0.03 x10^3/uL (0-0.4); Eosinophil % 0.2 % (0.00-5.0); Eosinophil (Absolute #) 0.02 x10^3/uL (0-0.5); Hemoglobin 9.9 g/dL (12.0-16.0); IMMATURE GRAN # 0.05 x10^3u/L (0.00-0.03); IMMATURE GRAN % 0.5 % (0.00-0.4); Lymphocyte (Absolute #) 0.54 x10^3/uL (1.0-4.6); Lymphocytes % 4.9 % (24.0-44.0); Mean Cell Volume 87.2 fL (78-100); Mean Corpuscular Hgb Concent. 30.9 g/dL (32-36); Mean Platelet Volume 8.7 fL (7.5-11.0); Monocyte (Absolute #) 0.63 x10^3/uL (0.0-1.3); Monocytes % 5.8 % (0.0-12.0); Neutrophil % 88.3 % (36.0-66.0); Platelet Count 322 x10^3/uL (150-450); Red Blood Count 3.67 x10^6/uL (4.1-5.4); Red Cell Distribution Width 13.3 % (11.5-14.0)
[2022-12-05 00:07] VITALS: BP 174/78; PULSE 82; O2SAT 97
[2022-12-05 00:18] LABS: ALBUMIN 4.2 g/dL (3.5-5.0); ALKALINE PHOSPHATASE 98 U/L (38-126); ANION GAP 11.4 MEQ/L (5-15); BLOOD UREA NITROGEN 14 mg/dL (7-17); CHLORIDE 103 mmol/L (98-107); Calcium 9.1 mg/dL (8.4-10.2); Carbon Dioxide 28 mmol/L (22-30); EST GLOMERULAR FILTRATION RATE > 60.0 ML/MIN; Glucose 119 mg/dL (74-106); Potassium 3.8 mmol/L (3.5-5.1); SGOT/AST 35 U/L (14-36); SGPT/ALT 28 U/L (0-35); SODIUM 138 mmol/L (137-145); Total Protein 7.8 g/dL (6.3-8.2)
[2022-12-05 00:40] LABS: Appearance Clear (Clear); Bacteria Many /HPF (None Seen); Bilirubin Negative (Negative); Blood Negative (Negative); Epithelial Cells Rare /HPF (None Seen); Glucose, Urine Negative (Negative); Hyaline Casts NONE SEEN /LPF (0-2); Ketones Trace (Negative); Leukocyte Esterase Small (Negative); Nitrite Negative (Negative); Protein,Urine Dip Negative (Negative); RBC 0-2 /HPF (0-5); Urobilinogen 0.2 mg/dL (0.2)
[2022-12-05 00:42] LABS: ADD URINE CULTURE? YES (NO)
[2022-12-05] MEDS ORDERED: Hydromorphone 1 mg/ml Injection IV ONE (00:48)
[2022-12-05] MEDS ORDERED: Hydromorphone 1 mg/ml Injection ONE (00:50)
[2022-12-05] MEDS ORDERED: Sodium Chloride 0.9% 1000 ML 1,000 ML IV SCH (01:00)
== END 2022-12-05 01:00 | disposition short-term general hospital (02) ==
LOC: ED 17:16
DX: S32.592A Other specified fracture of left pubis, initial encounter for closed fracture (principal); S70.12XA Contusion of left thigh, initial encounter; S70.02XA Contusion of left hip, initial encounter; W10.9XXA Fall (on) (from) unspecified stairs and steps, initial encounter; I10 Essential (primary) hypertension; Z79.891 Long term (current) use of opiate analgesic; Z28.310 Unvaccinated for COVID-19
CPT/HCPCS: 36000; 36415; 72192; 73502; 73552; 80053; 81001; 85025; 87086; 96372; 96374; 99285; J1170; J2270; A9270-GY

== ENCOUNTER 2023-09-07 20:55 | Emergency (ER) | payer MEDICARE, BC ==
[2023-09-07 21:22] VITALS: TEMP 97.7; O2SAT 97
[2023-09-07] MEDS ORDERED: NORCO 5/325 MG PO ONE (21:40)
[2023-09-07] MEDS ORDERED: NORCO 5/325 MG ONE (21:43)
--- NOTE | 2023-09-07 22:02 | ERPHSYRPT ---
- History of Present Illness Time Seen by Provider: 09/07/23 22:01 Source: patient Exam Limitations: no limitations Patient Subjective Stated Complaint: "I fell at 3pm, I tripped and fell to the ground. I hurt my left eye, my finger, my hip, and my knee." Triage Nursing Assessment: Pt presents to ER, is ambulatory and walks to ER Room 6. Pt states she tripped over her spouse's oxygen tubing at home and fell to the ground. Denies LOC. Pt is alert and oriented x 3. Has noted swelling to left hip with tenderness and bruising. Pt also has bruising to the right third digit. Complains of tenderness to left knee. Also has bruising to left eye. Pt respirations are easy. Denies any nausea/vomiting/diarrhea. Complains of slight headache. Rates overall pain 9/10 scale. States pain is the worse in the left hip and knee. No open wounds noted. Physician History: 78-year-old female presents to our ED for evaluation of pain to her left hip left knee. Patient tripped over her 's oxygen tubing. Injury occurred today at approximately 3 PM. Patient felt her left hip progressively swell which is what brought patient to our ED. Patient has been ambulatory since her fall. Patient also has bruising to the right third digit as well as right cheek area. However patient does not want her right hand or her right cheek imaged. She declined CAT scans. She feels is unnecessary. Patient only wants her left hip and left knee imaged. The fall was mechanical. It was not associated with any neuro cardiovascular symptomology. No chest pain or shortness of breath no nausea vomiting or diaphoresis. No numbness tingling or weakness. Patient otherwise feels well. She voices no other complaints or concerns at this time. Portions of this note were created with voice recognition technology. There may be grammatical, spelling, punctuation or sound alike errors Timing/Duration: today Severity: moderate Modifying Factors: Improves With: other (Palpation) Associated Symptoms: denies symptoms Allergies/Adverse Reactions: Ylekeor-NJL-TzX Reductase Inhibitor Allergy (Verified 09/07/23 21:23) Home Medications: Duloxetine HCl 30 mg [Cymbalta 30 MG Capsule] 20 mg PO BID 09/07/23 [History] Losartan Potassium 50 mg [Cozaar 50 MG] 25 mg PO DAILY 09/07/23 [History] Hx Tetanus, Diphtheria Vaccination/Date Given: Yes Hx Influenza Vaccination/Date Given: Yes Hx Pneumococcal Vaccination/Date Given: Yes Immunizations Up to Date: Yes Travel Risk - International Travel Have you traveled outside of the country in past 3 weeks: No - Coronavirus Screening Are you exhibiting any of the following symptoms?: No Close contact with a COVID-19 positive Pt in past 14-21 Days: No - Vaccine Status Have you recieved a Covid-19 vaccination: No - Review of Systems Constitutional: No Symptoms, No Fever, No Chills Eyes: No Symptoms Ears, Nose, & Throat: No Symptoms Respiratory: No Symptoms, No Cough, No Dyspnea Cardiac: No Symptoms, No Chest Pain, No Edema, No Syncope Abdominal/Gastrointestinal: No Symptoms, No Abdominal Pain, No Nausea, No Vomiting, No Diarrhea Genitourinary Symptoms: No Symptoms, No Dysuria Musculoskeletal: No Symptoms, No Back Pain, No Neck Pain Skin: No Symptoms, No Rash Neurological: No Symptoms, No Dizziness, No Focal Weakness, No Sensory Changes Psychological: No Symptoms Endocrine: No Symptoms All Other Systems: Reviewed and Negative - Past Medical History Pertinent Past Medical History: Yes Neurological History: No Pertinent History ENT History: No Pertinent History Cardiac History: High Cholesterol, Hypertension, Other Respiratory History: Other Endocrine Medical History: No Pertinent History Musculoskeletal History: Other GI Medical History: GERD, Hernia, Other History: No Pertinent History Psycho-Social History: No Pertinent History Female Reproductive Disorders: No Pertinent History Other Medical History: L Ankle Fracture (05/2021), Tonsillectomy, R Collarbone fx, Anemia, , R Carotid Artery Stenosis, [place]o's Esophagus, Lightheadedness, Fatigue, Dyspnea on exertion, Dysphagia, COVID-19 x1 (hx of) - Past Surgical History Past Surgical History: Yes Neuro Surgical History: No Pertinent History Cardiac: No Pertinent History Respiratory: No Pertinent History Gastrointestinal: No Pertinent History Genitourinary: No Pertinent History Musculoskeletal: Orthopedic Surgery Female Surgical History: No Pertinent History Other Surgical History: colonoscopies-two ( clear), esoph. ablations r/t barretts esophagus, left ankle - Social History Smoking Status: Never smoker Exposure to second hand smoke: No Drug Use: none Patient Lives Alone: No - Nursing Vital Signs Nursing Vital Signs: Initial Vital Signs Respiratory Rate 18 09/07/23 21:08 Blood Pressure 144/92 09/07/23 21:08 O2 Sat by Pulse Oximetry 98 09/07/23 21:08 Pain Scale Pain Intensity 9 - Physical Exam General Appearance: no apparent distress, alert Eye Exam: PERRL/EOMI, eyes nml inspection Ears, Nose, Throat Exam: normal ENT inspection, TMs normal, pharynx normal, moist mucous membranes Neck Exam: normal inspection, non-tender, supple, full range of motion Respiratory Exam: normal breath sounds, lungs clear, airway intact, No respiratory distress Cardiovascular Exam: regular rate/rhythm, normal heart sounds, normal peripheral pulses Gastrointestinal/Abdomen Exam: soft, normal bowel sounds, No tenderness, No mass Back Exam: normal inspection, normal range of motion, No CVA tenderness, No vertebral tenderness Extremity Exam: normal inspection, normal range of motion, pelvis stable Neurologic Exam: alert, oriented x 3, cooperative, normal mood/affect, nml cere bellar function, nml station & gait, sensation nml, No motor deficits Skin Exam: normal color, warm, dry, No rash Lymphatic Exam: No adenopathy SpO2 Interpretation: normal SpO2: 97 O2 Delivery: Room Air - Course Nursing assessment & vital signs reviewed: Yes - Radiology Exams Knee X-ray Interpretation: Interpreted by me (Osteopenia, degenerative changes, no fractures or dislocations of the left knee) Ordered Tests: Active Orders 24 hr Category Date Time Status KNEE (3 VIEWS) Stat Exams 09/07/23 21:40 Taken LOWER EXTREMITY WO CONTRAST [CT] Stat Exams 09/07/23 21:39 Completed Medication Summary Discontinued Medications Generic Name Dose Route Start Last Admin Trade Name Caroline PRN Reason Stop Dose Admin Hydrocodone Bitart/Acetaminophen 1 tab 09/07/23 21:40 09/07/23 21:45 Hydrocodone/Apap 5/325 1 Tab Tablet PO 09/07/23 21:41 1 tab STAT ONE Administration Hydrocodone Bitart/Acetaminophen Confirm 09/07/23 21:43 Hydrocodone/Apap 5/325 1 Tab Tablet Administered 09/07/23 21:44 Dose 1 tab .ROUTE .STK-MED ONE Albuterol Sulfate 2.5 mg 09/07/23 22:07 09/07/23 22:10 Albuterol Sulfate 2.5 Mg/3 Ml Neb IH 09/07/23 22:08 Not Given STAT ONE Albuterol Sulfate Confirm 09/07/23 22:18 Albuterol Sulfate 2.5 Mg/3 Ml Neb Administered 09/07/23 22:19 Dose 2.5 mg IH .K-MED ONE - Progress Progress: improved Progress Note: 78-year-old female presents to our ED for evaluation of left hip pain and left knee pain. Patient declined CT of her face and x-ray of the left hand after she tripped over her 's oxygen tubing. X-ray of left knee negative for fracture dislocation. Osteopenia and arthritic changes observed. CT left hip negative for fracture dislocation however there is a large hematoma and there is concern that this hematoma may be expanding. Advised patient hospitalization for observation. Patient declined. Patient will leave AGAINST MEDICAL ADVICE. Patient is of sound mind. Patient is appropriate to make informed and independent medical decisions. Patient understands that leaving AGAINST MEDICAL ADVICE can result in delayed diagnosis, increased risk of morbidity, mortality, short and long-term disability including . In spite of these risks, patient has decided to leave AGAINST MEDICAL ADVICE. Patient understands that she may return to our ED at any point if she reconsiders. Patient agrees to fol low-up with her primary care doctor within 48 hours for reevaluation. Patient voices no other complaints or concerns at this time. We will release patient AGAINST MEDICAL ADVICE per their request. Portions of this note were created with voice recognition technology. There may be grammatical, spelling, punctuation or sound alike errors Complexity of problem addressed is moderate acute complicated No critical care time Complexity of data reviewed and analyzed is moderate. Test ordered test reviewed. Results analyzed and correlated clinically with history and physical exam. Risk of complication and or risk morbidity/mortality patient management is moderate. Patient is at [facility] cannot risk for expanding hematoma at discharge. Vital stable at this time. Time spent to discharge patient is approximately 30 minutes. Plan of care established for shared decision making. No social determinants of health present impede follow-up. Portions of this note were created with voice recognition technology. There may be grammatical, spelling, punctuation or sound alike errors 09/07/23 23:49 Counseled pt/family regarding: diagnosis, need for follow-up, rad results - Departure Departure Disposition: AMA Clinical Impression: Fall, Hematoma, Osteopenia, Arthritis of knee, L5-S1 grade 2 spondylolisthesis Condition: Stable Critical Care Time: No Referrals: EREN MORENO [Primary Care Provider] - Follow up/PCP as directed Additional Instructions: Discharge/Care Plan NORA SINGH was seen on 09/07/23 in the Emergency Room. The patient was counseled regarding Diagnosis,Lab results, Imaging studies, need for follow up and when to return to the Emergency Room. Prescriptions given: Discharge Note I have spoken with the patient and/or caregivers. I have explained the patient's condition, diagnosis and treatment plan based on the information available to me at this time. I have answered the patient's and/or caregiver's questions and addressed any concerns. The patient and/or caregivers have as good understanding of the patient's diagnosis, condition and treatment plan as can be expected at this point. The vital signs have been stable. The patient's condition is stable and appropriate for discharge from the emergency department. The patient will pursue further outpatient evaluation with the primary care physician or other designated or consulting physician as outlined in the discharge instructions. The patient and/or caregivers are agreeable to this plan of care and follow-up instructions have been explained in detail. The patient and/or caregivers have received these instruction. The patient/and or caregivers are aware that any significant change in condition or worsening of symptoms should prompt an immediate return to this or the closest emergency department or call 911.
[2023-09-07] MEDS ORDERED: PROVENTIL 2.5 MG/3 ML NEB IH ONE ×2 (22:07→22:18)
--- NOTE | 2023-09-07 23:15 | XRAY ---
CLINICAL HISTORY: pain TECHNIQUE: Axial sections of CT of the left lower extremity and hip joint are done with coronal and sagittal reformatting. COMPARISON: None FINDINGS: Bone density is reduced. No acute fracture or dislocation is noted. No lytic or sclerotic bone lesion is noted. There is a 7.1 x 3.5 cm hyperdense soft tissue mass noted in subcutaneous tissue along the left upper leg. Moderate surrounding fat stranding is also noted. Underlying muscles grossly appear normal. Moderate degenerative changes are noted in the form of osteophyte formation. Grade ll spondylolisthesis of L5 over S1 is noted likely due to degenerative changes. The vacuum phenomenon is also noted. Visualized pelvic viscera appear unremarkable. IMPRESSION: No acute fracture or dislocation is noted. 7.1 x 3.5 cm hyperdense soft tissue mass noted in subcutaneous tissue of left upper leg with surrounding fat stranding. It likely represents hematoma. Please correlate clinically. Grade ll spondylolisthesis of L5 over S1 is likely due to degenerative changes. Electronically Signed by: Bushra Tejeda MD. (09/07/2023 23:10:51 EST)
[2023-09-07 23:53] VITALS: BP 173/82; PULSE 90; RESP 17
--- NOTE | 2023-09-08 08:42 | XRAY ---
Indication: Pain following fall. Comparison: Left femur December 04, 2022. 3 view left knee again demonstrates osteopenia, mild tricompartmental degenerative changes, small posterior fabella, and minimal scattered vascular calcifications. No new/acute abnormalities.
== END 2023-09-07 23:59 | disposition left against medical advice (07) ==
LOC: ED 20:55
DX: S70.02XA Contusion of left hip, initial encounter (principal); W01.0XXA Fall on same level from slipping, tripping and stumbling without subsequent striking against object, initial encounter; M85.88 Other specified disorders of bone density and structure, other site; M17.12 Unilateral primary osteoarthritis, left knee; M43.17 Spondylolisthesis, lumbosacral region; E78.5 Hyperlipidemia, unspecified; I10 Essential (primary) hypertension; Z79.899 Other long term (current) drug therapy; Z86.16 Personal history of COVID-19
CPT/HCPCS: 73562; 73700; 99283; J7609; A9270-GY

== ENCOUNTER 2024-02-02 10:02 | Inpatient (IN) | payer MEDICARE, BC ==
--- NOTE | 2024-02-02 17:36 | PCM.HP ---
<YOLY FREDERICK - Last Filed: 02/02/24 17:29> History of Present Illness - Chief Complaint Chief Complaint: LEFT HIP ARTHROPLASTY Date: 02/02/24 History of Present Illness: is a 78 year old female with a pmhx of esophageal carcinoma, iron deficiency anemia, osteoporosis, HTN, HLD, recent subcapital femoral neck fracture of the left hip with left hemiarthroplasty performed on 01/27/[address] Rivero from mechanical fall at home admitted to [facility] for continued inpatient physical therapy. Endorses tongue pain from recent surgical procedure for which she has been using viscous lidocaine. Plan for continued pain control and rehabilitation. Denies fever,cough, sob, cp, abdominal pain, HOPE, dizziness, N/V/D. The entirety of this encounter was performed via Telemedicine" This visit was performed using real-time audio and video connection between my location and thepatients locationwith the assistance of a surrogateat the patients location. Written or verbal consent was obtained from the patient/ guardian to perform this visit using[employer] technology. Any patient questions regarding the telemedicine interaction were answered. - Review of Systems Constitutional: No Symptoms Eyes: No Symptoms Ears, Nose, & Throat: Mouth Pain (tongue with sutures) Respiratory: No Symptoms Cardiac: No Symptoms Abdominal/Gastrointestinal: No Symptoms Genitourinary Symptoms: No Symptoms Musculoskeletal: Joint Pain (left hip) Skin: Skin Lesions (surgical incision to left hip) Neurological: No Symptoms Psychological: No Symptoms Medications & Allergies Home Medications: Home Medication List Duloxetine HCl 30 mg [Cymbalta 30 MG Capsule] 60 mg PO HS 09/07/23 [History Confirmed 02/02/24] Losartan Potassium 50 mg [Cozaar 50 MG] 25 mg PO DAILY 09/07/23 [History Confirmed 02/02/24] Acetaminophen 500 mg [Tylenol Extra Strength 500 mg] 1,000 mg PO TID 02/02/24 [History Confirmed 02/02/24] Apixaban [Eliquis 2.5 mg Tablet] 2.5 mg PO BID 02/02/24 [History Confirmed 02/02/24] Celecoxib 100 mg [celeBREX 100 MG] 200 mg PO BID 02/02/24 [History Confirmed 02/02/24] Cholecalciferol (Vitamin D3) [Vitamin D3] 2,000 unit PO DAILY 02/02/24 [History Confirmed 02/02/24] Dexlansoprazole [Dexlansoprazole Dr] 60 mg PO DAILY 02/02/24 [History Confirmed 02/02/24] Lidocaine HCl Viscous [XYLOCAINE HCl Viscous *] 100 ml MM ACHS 02/02/24 [History Confirmed 02/02/24] Oxycodone HCl/Acetaminophen [Oxycodone-Acetaminophen 5-325] 1 each PO Q4H PRN PRN 02/02/24 [History Confirmed 02/02/24] Polyethylene Glycol 3350 [Miralax] 17 gm PO BID PRN 02/02/24 [History Confirmed 02/02/24] Allergies/Adverse Reactions: Allergies Allergy/AdvReac Type Severity Reaction Status Date / Time latex Allergy Verified 02/02/24 16:28 [id number] Reductase Allergy Verified 09/07/23 21:23 Inhibitor - Past Medical History Past Medical History: Yes Neurological History: No Pertinent History ENT History: Cataracts Cardiac History: Hypertension Respiratory History: No Pertinent History Endocrine Medical History: No Pertinent History Musculoskelatal History: Fibromyalgia, Osteoarthritis GI Medical History: Esophageal Disorder, Other History: No Pertinent History Pyscho-Social History: No Pertinent History Reproductive Disorders: No Pertinent History Comment: L Ankle Fracture (05/2021), Tonsillectomy, R Collarbone fx, Anemia, , R Carotid Artery Stenosis, [place]'s Esophagus, Lightheadedness, Fatigue, Dyspnea on exertion, Dysphagia, COVID-19 x1 (hx of) - Past Surgical History Past Surgical History: Yes Neuro Surgical History: No Pertinent History Cardiac History: No Pertinent History Respiratory Surgery: No Pertinent History GI Surgical History: No Pertinent History Genitourinary Surgical Hx: No Pertinent History Musculskeletal Surgical Hx: Orthopedic Surgery Female Surgical History: No Pertinent History Other Surgical History: PLATE AND 9 SCREWS IN LEDT ANKLE - Social History Smoking Status: Never smoker Exposure to second hand smoke: No Alcohol: None Drug Use: none - Social Determinants of Health Will the patient participate in the screening: Yes Do you worry about a steady place to live?: No Do you have any problems with any of the following?: No known problems In the past 12 months,have you had to go without utilities?: No Have you or anyone in your house had to go without enough: No Transportation Issues: No Has anyone in your support network made you feel unsafe?: No Does the patient want assistance with any of the above?: No - Physical Exam Vital Signs: Vital Signs - 24 hr Temp Pulse Resp BP Pulse Ox 02/02/24 15:57 97.7 F 105 H 12 115/67 99 General Appearance: no apparent distress Neurologic Exam: alert, oriented x 3, cooperative Eye Exam: PERRL/EOMI Ears, Nose, Throat Exam: moist mucous membranes Neck Exam: normal inspection Respiratory Exam: normal breath sounds, lungs clear Cardiovascular Exam: regular rate/rhythm, normal heart sounds Pelvic Exam: not done Rectal Exam: deferred Back Exam: normal inspection Extremity Exam: limited range of motion Assessment/Plan (1) Hip fracture, left Current Visit: Yes Status: Acute Assessment & Plan: -From fall 01/25- s/p left hip hemiarthroplasty by Dr. Rivero (ortho) -IPPT -pain control -continue eliquis for the remainder of 4 weeks Code(s): S72.002A - FRACTURE OF UNSP PART OF NECK OF LEFT FEMUR, INIT (2) Carcinoma of esophagus Current Visit: Yes Status: Acute Assessment & Plan: -noted, per pt no chemo/rad Code(s): C15.9 - MALIGNANT NEOPLASM OF ESOPHAGUS, UNSPECIFIED (3) HTN (hypertension) Current Visit: Yes Status: Acute Assessment & Plan: -continue home meds, Losartan monitor BP Code(s): I10 - ESSENTIAL (PRIMARY) HYPERTENSION (4) Vitamin D deficiency Current Visit: Yes Status: Acute Assessment & Plan: -continue home med vitamin d 2000 units daily Code(s): E55.9 - VITAMIN D DEFICIENCY, UNSPECIFIED Telemedicine Encounter - Telemedicine Encounter Telemedicine Encounter: The entirety of this encounter was performed via Telemedicine" <TIFFANIE MELENDREZ - Last Filed: 02/02/24 23:00> History of Present Illness - Chief Complaint History of Present Illness: is a 78 year old female. - Physical Exam Vital Signs: Vital Signs - 24 hr Temp Pulse Resp BP Pulse Ox 02/02/24 21:11 98.5 F 66 16 109/55 94 L 02/02/24 20:00 98.5 F 66 16 109/55 94 L 02/02/24 15:57 97.7 F 105 H 12 115/67 99 Telemedicine Encounter - Telemedicine Encounter Telemedicine Encounter: The entirety of this encounter was performed via Telemedicine" TOÑA Encounter - TOÑA Encounter Attestation TOÑA Encounter Attestation: "IhavepersonallyseenandexNORA Cowan andhavediscussed pertinent aspects of their care with Yoly Pereira agree with the history, physical exam (any modifications based on my personal exam will be noted below), assessment, and plan as outlined in original note. Please see immediately below for my summary of findings and additional assessment and plan along with any meaningful corrections/explanations to the Subjective/Objective portions of the TOÑA note will be noted." My portion of the encounter took place via telemedicine. -Patient being admitted to [facility] for PT/OT s/p left hip hemiarthroplasty. Pain is well controlled. On eliquis for DVT prophylaxis. Prior level of function was independent without a walker and now using one. Patient would benefit from daily skilled PT/OT.
[2024-02-02] MEDS ORDERED: Miralax Powder 17GM PACKET PO PRN (17:43)
[2024-02-02] MEDS ORDERED: PERCOCET TABLET 5/325MG PO PRN (17:43)
[2024-02-02] MEDS ORDERED: TYLENOL 325 MG ONE (21:09)
[2024-02-02] MEDS: ELIQUIS 2.5 MG TABLET PO SCH (21:35)
[2024-02-02] MEDS: celeBREX 100 MG PO SCH (21:36)
[2024-02-02] MEDS: Cymbalta 30 MG Capsule PO SCH (21:36)
[2024-02-02] MEDS ORDERED: XYLOCAINE HCl Viscous MM SCH (22:00)
[2024-02-02] MEDS ORDERED: XYLOCAINE VISCOUS 2% 15 ML CUP ONE (22:22)
[2024-02-02] MEDS: XYLOCAINE HCl Viscous MM SCH (22:36)
[2024-02-02] MEDS: PERCOCET TABLET 5/325MG PO PRN (22:46)
[2024-02-02] MEDS: TYLENOL EXTRA STRENGTH 500 MG PO SCH (23:13)
[2024-02-03] MEDS: VITAMIN D PO SCH (09:11)
[2024-02-03] MEDS: Protonix 40MG Tablet PO SCH (09:11)
[2024-02-03] MEDS: Cozaar 50 MG PO SCH (09:12)
[2024-02-03] MEDS ORDERED: DEXLANSOPRAZOLE 60 MG PO SCH (10:00)
[2024-02-04] MEDS: Aplisol ID ONE (14:28)
--- NOTE | 2024-02-06 05:53 | PCM.NOTE ---
Date and Time: 02/06/24 0552 Subjective Assessment: is a 78 year old female with a pmhx of esophageal carcinoma, iron deficiency anemia, osteoporosis, HTN, HLD, recent subcapital femoral neck fracture of the left hip with left hemiarthroplasty performed on 01/27/[address] Rivero from mechanical fall at home admitted to [facility] bed service for continued inpatient physical therapy. 02/06/24: Met with patient bedside. Endorses left hip pain, mostly with movement, rates pain 6/10 on numerical pain scale. She does have sutures on her tongue s/p surgi jeanette procedure for bleeding taste buds. She uses viscous lidocaine for pain/soft diet. Inspection of tongue with no abnormal findings. Patient reports she is doing well with PT and pain is managed effectively with current pain medication regimen. Plan for continued IPPT/pain control. Lab findings unremarkable. Denies fever,cough, sob, cp, abdominal pain, HOPE, dizziness, N/V/D. - Review of Systems Constitutional: No Symptoms Eyes: No Symptoms Ears, Nose, & Throat: Mouth Pain (s/p surgical procedure tongue from bleeding taste buds) Respiratory: No Symptoms Cardiac: No Symptoms Abdominal/Gastrointestinal: No Symptoms Genitourinary Symptoms: No Symptoms Musculoskeletal: Joint Pain (Left hip ) Skin: No Symptoms Neurological: No Symptoms Psychological: No Symptoms Hematologic/Lymphatic: No Symptoms Immunological/Allergic: No Symptoms Objective Exam General Appearance: no apparent distress Neurologic Exam: alert, oriented x 3, cooperative Skin Exam: normal color, other (surgical incision to left hip) Eye Exam: PERRL Ears, Nose, Throat Exam: other (sutures to right tongue) Neck Exam: normal inspection Respiratory Exam: normal breath sounds, lungs clear Cardiovascular Exam: regular rate/rhythm, normal heart sounds Extremity Exam: normal inspection, normal range of motion Back Exam: normal inspection Pelvic Exam: deferred Rectal Exam: deferred Objective Data Vital Signs: Vital Signs - 24 hr Temp Pulse Resp BP Pulse Ox 02/05/24 19:46 98.2 F 77 16 109/55 96 02/05/24 07:22 97.7 F 68 20 119/58 99 Pain Assessment - Last Documented Pain Intensity 0 Pain Scale Used 0-10 Pain Scale Intake and Output: Intake & Output 02/03/24 02/04/24 02/05/24 02/06/24 11:59 11:59 11:59 11:59 Intake Total 660 360 220 100 Balance 660 360 220 100 Weight 60.1 kg 60.1 kg Multi-Disciplinary Progress Notes: Multi-Disciplinary Progress Notes 02/05/24 12:17 Occupational Therapy Note by Mariel(L#[id number]),Nathalie MELENDEZ WAS FOUND SITTING UP IN BEDSIDE CHAIR UPON OT'S ARRIVAL. REPORTED PAIN WAS INCREASED THIS DATE BUT SHE HAD JUST HAD PAIN PILL A FEW MINUTES PRIOR TO OT'S ARRIVAL. HIP PXS WERE REITTERATED AND SHE VERBALIZED GOOD UNDERSTANDING OF ALL. SHE REQ. SBA FOR SIT TO STAND FROM BEDSIDE CHAIR, SBA FOR AMBULATION WITH WALKER TO/FROM BATHROOM AND SINK TO WASH HER HANDS (X 2 TIMES DURING SESSION). SHE REQ ASSISTANCE TO PULL HER PANTS UP FROM DOWN AROUND ANKLES WHEN STANDING FROM COMMODE TO GET CLOTHING INTACT. SHE WAS INDEPENDENT WITH TOILET HYGEINE. NORA WAS EDUCATED IN A.E. USE INCLUDING SOCK AIDE AND PAYROLL DIRECTOR AND REQ. MIN VERBAL CUES TO PERFORM AMILCAR/DOFF OF BILATERAL SOCKS WITH USE OF BOTH DEVICES. SHE WAS LEFT SITTING IN BEDSIDE CHAIR WITH BLE ELEVATED, ICE ON HIP, CALL LIGHT IN REACH, AND HAD NO FURTHER QUESTIONS. Initialized on 02/05/24 12:17 - END OF NOTE Assessment/Plan (1) Hip fracture, left Current Visit: Yes Status: Acute Assessment & Plan: ( -From fall 01/25- s/p left hip hemiarthroplasty by Dr. Rivero (ortho) -IPPT -pain control -continue eliquis for the remainder of 4 weeks 02/05: -Continue pain control and IPPT Code(s): S72.002A - FRACTURE OF UNSP PART OF NECK OF LEFT FEMUR, INIT (2) Carcinoma of esophagus Current Visit: Yes Status: Acute Assessment & Plan: -noted, per pt no chemo/rad Code(s): C15.9 - MALIGNANT NEOPLASM OF ESOPHAGUS, UNSPECIFIED (3) HTN (hypertension) Current Visit: Yes Status: Acute Assessment & Plan: -continue home meds, Losartan monitor BP Code(s): I10 - ESSENTIAL (PRIMARY) HYPERTENSION (4) Vitamin D deficiency Current Visit: Yes Status: Acute Assessment & Plan: -continue home med vitamin d 2000 units daily Code(s): E55.9 - VITAMIN D DEFICIENCY, UNSPECIFIED Code(s): S72.002A - FRACTURE OF UNSP PART OF NECK OF LEFT FEMUR, INIT (2) Carcinoma of esophagus Current Visit: Yes Status: Acute Code(s): C15.9 - MALIGNANT NEOPLASM OF ESOPHAGUS, UNSPECIFIED (3) HTN (hypertension) Current Visit: Yes Status: Acute Code(s): I10 - ESSENTIAL (PRIMARY) HYPERTENSION (4) Vitamin D deficiency Current Visit: Yes Status: Acute Code(s): E55.9 - VITAMIN D DEFICIENCY, UNSPECIFIED
[2024-02-06] MEDS: PATIENT OWN MEDICATION PO SCH (07:31)
[2024-02-06 09:06] LABS: ANION GAP 7.2 MEQ/L (5-15); Calcium 9.1 mg/dL (8.4-10.2); Creatinine 1 0.61 mg/dL (0.52-1.04); EST GLOMERULAR FILTRATION RATE 90.3 ML/MIN; Potassium 4.2 mmol/L (3.5-5.1)
[2024-02-06] MEDS ORDERED: TYLENOL EXTRA STRENGTH 500 MG PO PRN (10:31)
[2024-02-08] MEDS: PERCOCET TABLET 5/325MG PO PRN (00:31)
[2024-02-09 04:50] LABS: Hematocrit 26.8 % (34.1-44.9); Hemoglobin 8.4 g/dL (11.2-15.7); Mean Corpuscular Hemoglobin 29.8 pg (25.6-32.2); Mean Corpuscular Hgb Concent. 31.3 g/dL (32.2-35.5); Mean Platelet Volume 8.2 fL (9.4-12.3); Platelet Count 567 x10^3/uL (182-369); Red Blood Count 2.82 x10^6/uL (3.93-5.22); Red Cell Distribution Width 13.2 % (11.7-14.4); White Blood Count 7.9 x10^3/uL (3.98-10.04)
[2024-02-09 05:21] LABS: ALBUMIN 3.1 g/dL (3.5-5.0); ANION GAP 9.2 MEQ/L (5-15); BILIRUBIN,TOTAL 0.3 mg/dL (0.2-1.3); Calcium 9.1 mg/dL (8.4-10.2); Creatinine 1 0.73 mg/dL (0.52-1.04); EST GLOMERULAR FILTRATION RATE 83.1 ML/MIN; Potassium 4.7 mmol/L (3.5-5.1); Total Protein 6.2 g/dL (6.3-8.2)
--- NOTE | 2024-02-09 07:25 | PCM.NOTE ---
Date and Time: 02/09/24 07 Subjective Assessment: 02/09/24 is a 78 year old female with a pmhx of esophageal carcinoma, iron deficiency anemia, osteoporosis, HTN, HLD, recent subcapital femoral neck fracture of the left hip with left hemiarthroplasty performed on 01/27/[address] Rivero from mechanical fall at home admitted to swing bed service for continued inpatient physical therapy.Patient reports she is doing well with PT and pain is managed effectively with current pain medication regimen. Plan for continued IPPT/pain control. Lab findings unremarkable.Pt working well with Pt but refuses OT as she feels she is able to take care of her needs. She feels she is doing much better and about ready to d/c. PT to eval for home needs. Discussed pt concerns for leaving with case management and they will discuss with pt as well and order any home supplies. Denies fever,cough, sob, cp, abdominal pain, HOPE, dizziness, N/V/D. - Review of Systems Constitutional: No Fever, No Chills Eyes: No Symptoms Ears, Nose, & Throat: No Symptoms Respiratory: No Cough, No Short Of Breath Cardiac: No Chest Pain, No Edema, No Syncope Abdominal/Gastrointestinal: No Abdominal Pain, No Nausea, No Vomiting, No Diarrhea Genitourinary Symptoms: No Dysuria Musculoskeletal: No Back Pain, No Neck Pain Skin: No Rash Neurological: No Dizziness, No Focal Weakness, No Sensory Changes Psychological: No Symptoms Endocrine: No Symptoms Hematologic/Lymphatic: No Symptoms Immunological/Allergic: No Symptoms Objective Exam General Appearance: no apparent distress, alert, thin Neurologic Exam: alert, oriented x 3, cooperative, normal mood/affect, nml cerebellar function, sensation nml, No motor deficits Skin Exam: normal color, warm, dry Eye Exam: PERRL, EOMI, eyes nml inspection Ears, Nose, Throat Exam: normal ENT inspection, pharynx normal, moist mucous membranes Neck Exam: normal inspection, non-tender, supple, full range of motion Respiratory Exam: normal breath sounds, lungs clear, No respiratory distress Cardiovascular Exam: regular rate/rhythm, normal heart sounds Gastrointestinal/Abdomen Exam: soft, No tenderness, No mass Extremity Exam: normal inspection, normal range of motion Back Exam: normal inspection, normal range of motion, No CVA tenderness, No vertebral tenderness Pelvic Exam: deferred Rectal Exam: deferred Objective Data Vital Signs: Vital Signs - 24 hr Temp Pulse Resp BP Pulse Ox 02/08/24 21:00 97.4 F 72 16 101/51 99 Pain Assessment - Last Documented Pain Intensity 2 Pain Scale Used 0-10 Pain Scale Intake and Output: Intake & Output 02/06/24 02/07/24 02/08/24 02/09/24 11:59 11:59 11:59 11:59 Intake Total 100 320 120 360 Balance 100 320 120 360 Weight 61 kg Lab Results: Lab Results-Last 24 Hours 02/09/24 02/09/24 Range/Units 04:47 04:47 WBC 7.9 (3.98-10.04) x10^3/uL RBC 2.82 L (3.93-5.22) x10^6/uL Hgb 8.4 L (11.2-15.7) g/dL Hct 26.8 L (34.1-44.9) % MCV 95.0 H (79.4-94.8) fL MCH 29.8 (25.6-32.2) pg MCHC 31.3 L (32.2-35.5) g/dL RDW 13.2 (11.7-14.4) % Plt Count 567 H (182-369) x10^3/uL MPV 8.2 L (9.4-12.3) fL Sodium 137 (135-145) mmol/L Potassium 4.7 (3.5-5.1) mmol/L Chloride 105 (98-107) mmol/L Carbon Dioxide 28 (22-30) mmol/L Anion Gap 9.2 (5-15) MEQ/L BUN 18 H (7-17) mg/dL Creatinine 0.73 (0.52-1.04) mg/dL Estimated GFR 83.1 ML/MIN Glucose 104 (74-106) mg/dL Calcium 9.1 (8.4-10.2) mg/dL Total Bilirubin 0.30 (0.2-1.3) mg/dL AST 20 (14-36) U/L ALT 15 (0-35) U/L Alkaline Phosphatase 95 (38-126) U/L Serum Total Protein 6.2 L (6.3-8.2) g/dL Albumin 3.1 L (3.5-5.0) g/dL Multi-Disciplinary Progress Notes: Multi-Disciplinary Progress Notes 02/08/24 14:36 Occupational Therapy Note by Cheryl Roberson Occupational Therapy Treatment: Upon OT arrival, Nelda sitting up in chair and agreeable to OT ADL session. OT provided bathroom set up for bathing task in which Nelda completes all functional transfers and mobility with standard walker and SBA/ Mod IND. She required frequent verbal cues on activity pacing, safety insight, and hip precautions as she would try to pivot on her left LE. Nelda utilized adaptive equipment for LB dressing this date pre and post shower; min assist required for LB washing (assist from therapist) with education on Longhandled sponge for home. Nelda completes tasks quickly and disregarding hip precautions requiring frequent verbal cues. She required min assist for LB drying and able to complete all other tasks mod indep. She is adamant that her spouse will assist at home; however, she is very selective on tasks that she will allow the hospital staff to help her with. Attempted shoe management, but difficulty with donning shoes. OT recommends different shoe choice for discharge. Overall, Nelda is nearly mod INdep with a/e for dressing and bathing but requires frequent verbal cues on technique and adherence to hip precautions. OT recommends family assist in verbal cues for hip precautions. Initialized on 02/08/24 14:36 - END OF NOTE 02/08/24 12:30 Case Management Note by Fely Mejía VISITED WITH PATIENT THIS AM- DISCUSSED CURRENT THERAPY PROGRESS AND PLANS FOR DC. PATIENT CONTINUE TO PLAN TO DC HOME AND DO OTPT PT AT TIME OF DC. WILL ORDER WALKER AND TOILET RISER AT TIME OF DC. PATIENT WILL ALSO NEED MEDS SENT IN AT DC SHE DID NOT PICK THESE UP AT [facility] PRIOR TO DC. Initialized on 02/08/24 12:30 - END OF NOTE Assessment/Plan (1) Hip fracture, left Current Visit: Yes Status: Acute Assessment & Plan: -From fall 01/25- s/p left hip hemiarthroplasty by Dr. Rivero (ortho) -IPPT -pain control -continue eliquis for the remainder of 4 weeks - refused OT Code(s): S72.002A - FRACTURE OF UNSP PART OF NECK OF LEFT FEMUR, INIT (2) Carcinoma of esophagus Current Visit: Yes Status: Acute Assessment & Plan: -noted, per pt no chemo/rad Code(s): C15.9 - MALIGNANT NEOPLASM OF ESOPHAGUS, UNSPECIFIED (3) HTN (hypertension) Current Visit: Yes Status: Acute Assessment & Plan: -continue home meds, Losartan - monitor BP - BP well controlled Code(s): I10 - ESSENTIAL (PRIMARY) HYPERTENSION (4) Vitamin D deficiency Current Visit: Yes Status: Acute Assessment & Plan: -continue home med vitamin d 2000 units daily Code(s): E55.9 - VITAMIN D DEFICIENCY, UNSPECIFIED
[2024-02-10] MEDS: PATIENT OWN MEDICATION PO SCH (08:00)
[2024-02-10] MEDS: Pain Relieving Rub TOP PRN (10:01)
--- NOTE | 2024-02-11 07:09 | PCM.DS ---
Discharge Summary Date of Admission: 02/02/24 15:40 Date of Discharge: 02/11/24 Admitting Physician: TIFFANIE MELENDREZ MD Primary Care Provider: EREN MORENO Allergies Allergies latex Allergy (Verified 02/02/24 16:28) [id number] Reductase Inhibitor Allergy (Verified 09/07/23 21:23) Hospital Summary - Hospital Course Hospital Course: 02/10 is a 78 year old female with a pmhx of esophageal carcinoma, iron deficiency anemia, osteoporosis, HTN, HLD, recent subcapital femoral neck fracture of the left hip with left hemiarthroplasty performed on 01/27/[address] Rivero from mechanical fall at home admitted to swing bed service for continued inpatient physical therapy. Patient reports she is doing well with PT and pain is managed effectively with current pain medication regimen. Plan for continued OP PT/pain control. Lab findings unremarkable during stay. Pt did well with PT but refused OT as she felt she was able to take care of her needs. She feels she is doing much better and about ready to d/c. PT evaluated for home needs and walker to be delivered today to her home per CM. Denies fever,cough, sob, cp, abdominal pain, HOPE, dizziness, N/V/D. - Vitals & Intake/Output Vital Signs: Vital Signs Temperature 97.8 F 02/10/24 21:00 Pulse Rate 66 02/10/24 21:00 Respiratory Rate 16 02/10/24 21:00 Blood Pressure 118/55 02/10/24 21:00 O2 Sat by Pulse Oximetry 92 L 02/10/24 21:00 Intake & Output: Intake & Output 02/08/24 02/09/24 02/10/24 02/11/24 11:59 11:59 11:59 11:59 Intake Total 120 360 120 360 Balance 120 360 120 360 - Lab Result Diagrams: 02/09/24 04:47 02/09/24 04:47 - Procedures and Test Procedures and Tests throughout Hospitalization: Therapy Orders & Screens 02/02/24 14:00 OT Eval and Treat ( Order) ONCE Comment: Physician Instructions: Reason For Exam: Evaluate: Yes Treat: Yes Reason for Evaluation: DECONDITIONING R/T ORIF L HIP Diagnosis: DECONDITIONING R/T ORIF L HIP 02/02/24 14:01 PT Eval & Treat (MD Order) ONCE Reason for Eval:: SEE BELOW Diagnosis: DECONDITIOINING R/T ORIF L HIP 02/03/24 17:30 OT Clarification Order ROUTINE Comment: Physician Instructions: Reason For Exam: OT Clarification: 5X/WEEK TO ADDRESS FUNCTIONAL STRENGTH, ACTIVITY TOLERANCE, BALANCE, AND A/E TRAINING TO FACILITATE SAFE D/C. 02/04/24 06:05 PT Clarification Order ROUTINE Comment: Physician Instructions: Reason For Exam: PT Clarification: PT TO RX 5-6X/WK UNTIL D/C TO ADDRESS FUNCTIONAL MOBILITY AND GAIT TRAINING, THER EX, BALANCE ACTIVITIES, AND PT. ED. RE: SAFETY AWARENESS, HEP, AND POSTERIOR HIP PRECAUTIONS TO MAXIMIZE FUCNTIONAL POTENTIAL FOR SAFE RETURN HOME. Discharge Exam General Appearance: no apparent distress, alert Neurologic Exam: alert, oriented x 3, cooperative, normal mood/affect, nml cerebellar function, sensation nml, No motor deficits Eye Exam: PERRL, EOMI, eyes nml inspection Ears, Nose, Throat Exam: normal ENT inspection, pharynx normal, moist mucous membranes Neck Exam: normal inspection, non-tender, supple, full range of motion Respiratory Exam: normal breath sounds, lungs clear, No respiratory distress Cardiovascular Exam: regular rate/rhythm, normal heart sounds Gastrointestinal/Abdomen Exam: soft, No tenderness, No mass Pelvic Exam: deferred Rectal Exam: deferred Back Exam: normal inspection, normal range of motion, No CVA tenderness, No vertebral tenderness Extremity Exam: normal inspection, normal range of motion Skin Exam: normal color, warm, dry Final Diagnosis/Problem List - Final Discharge Diagnosis/Problem (1) Hip fracture, left Current Visit: Yes Status: Acute Code(s): S72.002A - FRACTURE OF UNSP PART OF NECK OF LEFT FEMUR, INIT (2) Carcinoma of esophagus Current Visit: Yes Status: Acute Code(s): C15.9 - MALIGNANT NEOPLASM OF ESOPHAGUS, UNSPECIFIED (3) HTN (hypertension) Current Visit: Yes Status: Acute Code(s): I10 - ESSENTIAL (PRIMARY) HYPERTENSION (4) Vitamin D deficiency Current Visit: Yes Status: Acute Assessment & Plan: (1) Hip fracture, left Current Visit: Yes Status: Acute Assessment & Plan: -From fall 01/25- s/p left hip hemiarthroplasty by Dr. Jaafar (ortho) -IPPT -pain control -continue eliquis for the remainder of 4 weeks - refused OT Code(s): S72.002A - FRACTURE OF UNSP PART OF NECK OF LEFT FEMUR, INIT (2) Carcinoma of esophagus Current Visit: Yes Status: Acute Assessment & Plan: -noted, per pt no chemo/rad Code(s): C15.9 - MALIGNANT NEOPLASM OF ESOPHAGUS, UNSPECIFIED (3) HTN (hypertension) Current Visit: Yes Status: Acute Assessment & Plan: -continue home meds, Losartan - monitor BP - BP well controlled Code(s): I10 - ESSENTIAL (PRIMARY) HYPERTENSION (4) Vitamin D deficiency Current Visit: Yes Status: Acute Assessment & Plan: -continue home med vitamin d 2000 units daily Code(s): E55.9 - VITAMIN D DEFICIENCY, UNSPECIFIED Code(s): E55.9 - VITAMIN D DEFICIENCY, UNSPECIFIED - Discharge Discharge Date: 02/11/24 Disposition: Home, Self-Care Condition: Stable Prescriptions: Continue Losartan Potassium 50 mg [Cozaar 50 MG] 25 mg PO DAILY Duloxetine HCl 30 mg [Cymbalta 30 MG Capsule] 60 mg PO HS Dexlansoprazole [Dexlansoprazole Dr] 60 mg PO DAILY Lidocaine HCl Viscous [XYLOCAINE HCl Viscous *] 100 ml MM ACHS Acetaminophen 500 mg [Tylenol Extra Strength 500 mg] 1,000 mg PO TID Celecoxib 100 mg [celeBREX 100 MG] 200 mg PO BID Apixaban [Eliquis 2.5 mg Tablet] 2.5 mg PO BID Cholecalciferol (Vitamin D3) [Vitamin D3] 2,000 unit PO DAILY Oxycodone HCl/Acetaminophen [Oxycodone-Acetaminophen 5-325] 1 each PO Q4H PRN PRN PRN Reason: Pain Polyethylene Glycol 3350 [Miralax] 17 gm PO BID PRN PRN Reason: Constipation Outpatient Orders: Physical Therapy Eval & Treat Facility: [facility], Location: PHYSICAL THERAPY Additional Instructions: YOUR FIRST APT WITH PHYSICAL THERAPY IS 02/15/24@ 2PM Follow up with: CRISTY RIVERO MD [COURTESY STAFF] - 02/17/24 9:45 am EREN MORENO [Primary Care Provider] - 02/29/24 9:15 am
--- NOTE | 2024-02-11 10:46 | PCM.DCORD ---
- Discharge Discharge Date: 02/11/24 Disposition: Home, Self-Care Condition: Stable Prescriptions: Continue Losartan Potassium 50 mg [Cozaar 50 MG] 25 mg PO DAILY Duloxetine HCl 30 mg [Cymbalta 30 MG Capsule] 60 mg PO HS Dexlansoprazole [Dexlansoprazole Dr] 60 mg PO DAILY Lidocaine HCl Viscous [XYLOCAINE HCl Viscous *] 100 ml MM ACHS Acetaminophen 500 mg [Tylenol Extra Strength 500 mg] 1,000 mg PO TID Celecoxib 100 mg [celeBREX 100 MG] 200 mg PO BID Apixaban [Eliquis 2.5 mg Tablet] 2.5 mg PO BID Cholecalciferol (Vitamin D3) [Vitamin D3] 2,000 unit PO DAILY Oxycodone HCl/Acetaminophen [Oxycodone-Acetaminophen 5-325] 1 each PO Q4H PRN PRN PRN Reason: Pain Polyethylene Glycol 3350 [Miralax] 17 gm PO BID PRN PRN Reason: Constipation Outpatient Orders: Physical Therapy Eval & Treat Facility: [facility], Location: PHYSICAL THERAPY Additional Instructions: YOUR FIRST APT WITH PHYSICAL THERAPY IS 02/15/24@ 2PM Follow up with: CRISTY IGLESIAS MD [COURTESY STAFF] - 02/17/24 9:45 am EREN MORENO [Primary Care Provider] - 02/29/24 9:15 am
[2024-02-11 11:33] VITALS: BP 126/55; PULSE 63; RESP 17; TEMP 97.7; O2SAT 95
== END 2024-02-11 15:03 | disposition home or self-care (01) | DRG 536 ==
LOC: MED SURG 15:40
PROVIDERS: ADMIT Internal Medicine; ATTEND Internal Medicine
DX: S72.002A Fracture of unspecified part of neck of left femur, initial encounter for closed fracture (principal); C15.9 Malignant neoplasm of esophagus, unspecified; I10 Essential (primary) hypertension; E55.9 Vitamin D deficiency, unspecified; D64.9 Anemia, unspecified; M81.0 Age-related osteoporosis without current pathological fracture; E78.5 Hyperlipidemia, unspecified; Z79.899 Other long term (current) drug therapy
CPT/HCPCS: 36415; 80048; 80053; 85027; Q3014; 97110-GP; A9270-GY

== ENCOUNTER 2024-06-03 12:21 | Emergency (ER) | payer MEDICARE, BC ==
[2024-06-03 12:44] VITALS: TEMP 98.9
--- NOTE | 2024-06-03 13:10 | ERPHSYRPT ---
- History of Present Illness Time Seen by Provider: 06/03/24 12:55 Historian: patient Exam Limitations: no limitations Patient Subjective Stated Complaint: pt c/o of pain directly below both breasts and feels like 'there is a band around' her Triage Nursing Assessment: Pt brought to the ER by her granddaughter, hypertensive, rates pain as 4/10, pulses normal, skin n/w/d, nausea, still has gallbladder, hx of hiatal hernia, reports pain lasted for about 2 hours this morning and she broke out into a sweat, no difficulty breathing Physician History: Pt states she started with lower anterior chest pain and dull RUQ abdominal pain with nausea and vomiting x1 without blood. LBM was yesterday & wnl. Pt denies fever, cough, shortness of air. Allergies/Adverse Reactions: latex Allergy (Verified 06/03/24 12:44) [id number] Reductase Inhibitor Allergy (Verified 06/03/24 12:44) Home Medications: Duloxetine HCl 30 mg [Cymbalta 30 MG Capsule] 60 mg PO HS 09/07/23 [History] Losartan Potassium 50 mg [Cozaar 50 MG] 25 mg PO DAILY 09/07/23 [History] Dexlansoprazole [Dexlansoprazole Dr] 60 mg PO DAILY 02/02/24 [History] ursodioL [Ursodiol] 300 mg PO TID 06/03/24 [History] Hx Tetanus, Diphtheria Vaccination/Date Given: Yes Hx Influenza Vaccination/Date Given: No Hx Pneumococcal Vaccination/Date Given: No Travel Risk - International Travel Have you traveled outside of the country in past 3 weeks: No - Emerging Infectious Disease Are you exhibiting symptoms associated with any current EIDs: Yes Symptoms: Abdominal Pain - Review of Systems Constitutional: No Fever Ears, Nose, & Throat: No Ear Pain, No Throat Pain Respiratory: No Cough, No Dyspnea Cardiac: Chest Pain (lower ) Abdominal/Gastrointestinal: Abdominal Pain (RUQ), Nausea, Vomiting, No Diarrhea Genitourinary Symptoms: No Dysuria - Past Medical History Pertinent Past Medical History: Yes Neurological History: No Pertinent History ENT History: Cataracts Cardiac History: High Cholesterol Respiratory History: No Pertinent History Endocrine Medical History: No Pertinent History Musculoskeletal History: Osteoporosis, Other GI Medical History: Esophageal Disorder, Other History: No Pertinent History Psycho-Social History: No Pertinent History Female Reproductive Disorders: No Pertinent History Other Medical History: PMH: AORTIC REGURGITATION, L KNEE PN, ESPOPHAGEAL CA, CAD, CREST SYNDROME, FIBROMYALGIA, HTN, HYPERLIPIDEMIA, MITRAL REGURG, OA, OSTEOPOROSIS. PREVIOUS FX TO SAME HIP 2 YEARS AGO WITHOUT SX. - Past Surgical History Past Surgical History: Yes Neuro Surgical History: No Pertinent History Cardiac: No Pertinent History Respiratory: No Pertinent History Gastrointestinal: No Pertinent History Genitourinary: No Pertinent History Musculoskeletal: Orthopedic Surgery Female Surgical History: No Pertinent History Other Surgical History: PLATE AND 9 SCREWS IN LEDT ANKLE - Social History Smoking Status: Never smoker Exposure to second hand smoke: No Drug Use: none Patient Lives Alone: No - Social Determinants of Health Will the patient participate in the screening: Yes Do you worry about a steady place to live?: No Do you have any problems with any of the following?: No known problems In the past 12 months,have you had to go without utilities?: No Transportation Issues: No Has anyone in your support network made you feel unsafe?: No Have you or anyone in your house had to go without enough: No - Nursing Vital Signs Nursing Vital Signs: Initial Vital Signs Temperature 98.9 F 06/03/24 12:31 Pulse Rate 86 06/03/24 12:31 Respiratory Rate 18 06/03/24 12:31 Blood Pressure 154/55 06/03/24 12:31 O2 Sat by Pulse Oximetry 99 06/03/24 12:31 Pain Scale Pain Intensity 5 - Physical Exam General Appearance: alert Eye Exam: eyes nml inspection Ears, Nose, Throat Exam: TMs normal, pharynx normal Neck Exam: normal inspection Respiratory Exam: lungs clear, airway intact Cardiovascular Exam: normal heart sounds Gastrointestinal/Abdomen Exam: normal bowel sounds, tenderness (mild RUQ tenderness) Extremity Exam: No pedal edema Neurologic Exam: alert, cooperative Skin Exam: warm, dry SpO2 Interpretation: normal SpO2: 99 O2 Delivery: Room Air - Course Nursing assessment & vital signs reviewed: Yes EKG Interpreted by Me: RATE (60), Sinus Rhythm, Left Dutton Deviation, Other (QTc = 403) - CT Exams Chest CT Interpretation: Tele-radiologist Report (Dilated esophagus down to its lower end where a polypoidal mass lesion noted within the lumen of the lower esophagus could be an intussuscepted herniated stomach versus polypoidal mass lesion for endoscopic assessment. No PE in main pulmonary arteries. See rest of report.) Abdomen/Pelvis CT Interpretation: Tele-radiologist Report (Irregular soft tissue t hickening/mass reaching 40 mm in maximum diameter involving the distal esophagus, gastroesophageal junction and fundus. Distended gallbladder with mild microlithiasis. Bulky uterus for age with irregular contour.) Ordered Tests: Active Orders 24 hr Category Date Time Status EKG-ER Only STAT Care 06/03/24 13:15 Active IV Insertion STAT Care 06/03/24 13:13 Active ABDOMEN AND PELVIS W/0 CONTRAS [CT] Stat Exams 06/03/24 13:14 Completed CHEST WITH CONTRAST [CT] Stat Exams 06/03/24 13:15 Completed AMYLASE Stat Lab 06/03/24 13:30 Completed CBC W DIFF Stat Lab 06/03/24 13:30 Completed CMP Stat Lab 06/03/24 13:30 Completed CULTURE,URINE Stat Lab 06/03/24 13:11 Received LIPASE Stat Lab 06/03/24 13:30 Completed MAGNESIUM Stat Lab 06/03/24 13:30 Completed TROPONIN Q4H Lab 06/03/24 13:30 Completed TROPONIN Q4H Lab 06/03/24 17:00 Completed TROPONIN Q4H Lab 06/03/24 21:15 Ordered UA W/RFX UR CULTURE Stat Lab 06/03/24 13:11 Completed Medication Summary Discontinued Medications Generic Name Dose Route Start Last Admin Trade Name Freq PRN Reason Stop Dose Admin Ceftriaxone Sodium 1 gm in 100 mls @ 200 mls/hr 06/03/24 14:03 06/03/24 15:46 Rocephin 1 Gm / 100 Ml Nacl IV 06/03/24 14:32 Infused STAT ONE Infusion Ceftriaxone Sodium Confirm 06/03/24 14:05 Rocephin 1 Gm / 100 Ml Nacl Administered 06/03/24 14:06 Dose 1 gm in 100 mls @ ud IV .STK-MED ONE Ondansetron HCl 4 mg 06/03/24 13:13 06/03/24 13:35 Ondansetron Hcl 4 Mg/2 Ml Vial IV 06/03/24 13:14 Not Given STAT ONE Ondansetron HCl Confirm 06/03/24 13:33 Ondansetron Hcl 4 Mg/2 Ml Vial Administered 06/03/24 13:34 Dose 4 mg .ROUTE .STK-MED ONE Lab/Rad Data: Laboratory Result Diagrams 06/03/24 13:30 06/03/24 13:30 Laboratory Results 06/03/24 06/03/24 06/03/24 Range/Units 17:00 13:30 13:30 WBC (3.98-10.04) x10^3/uL RBC (3.93-5.22) x10^6/uL Hgb (11.2-15.7) g/dL Hct (34.1-44.9) % MCV (79.4-94.8) fL MCH (25.6-32.2) pg MCHC (32.2-35.5) g/dL RDW (11.7-14.4) % Plt Count (182-369) x10^3/uL MPV (9.4-12.3) fL Gran % (34.0-71.1) % Immature Gran % (Auto) (0.001-0.429) % Nucleat RBC Rel Count (0.00-0.2) % Eos # (Auto) (0.04-0.36) x10^3/uL Immature Gran # (Auto) (0.001-0.031) x10^3u/L Absolute Lymphs (auto) (1.18-3.74) x10^3/uL Absolute Monos (auto) (0.24-0.86) x10^3/uL Absolute Nucleated RBC (0.00-0.012) x10^3u/L Lymphocytes % (19.3-51.7) % Monocytes % (4.7-12.5) % Eosinophils % (0.7-5.8) % Basophils % (0.1-1.2) % Absolute Granulocytes (1.56-6.13) x10^3/uL Basophils # (0.01-0.08) x10^3/uL Sodium 140 (135-145) mmol/L Potassium 3.9 (3.5-5.1) mmol/L Chloride 106 (98-107) mmol/L Carbon Dioxide 23 (22-30) mmol/L Anion Gap 15.0 (5-15) MEQ/L BUN 21 H (7-17) mg/dL Creatinine 0.60 (0.52-1.04) mg/dL Estimated GFR 90.7 ML/MIN Glucose 106 (74-106) mg/dL Calcium 9.9 (8.4-10.2) mg/dL Magnesium 2.2 (1.6-2.3) mg/dL Total Bilirubin 0.20 (0.2-1.3) mg/dL AST 42 H (14-36) U/L ALT 22 (0-35) U/L Alkaline Phosphatase 109 (38-126) U/L Troponin I < 0.012 < 0.012 (0.000-0.033) ng/mL Serum Total Protein 7.2 (6.3-8.2) g/dL Albumin 3.9 (3.5-5.0) g/dL Amylase 77 (30-110) U/L Lipase 121 (23-300) U/L Urine Color (Yellow) Urine Appearance (Clear) Urine pH (4.6-8.0) Ur Specific Sachse (1.005-1.030) Urine Protein (Negative) Urine Glucose (UA) (Negative) mg/dL Urine Ketones (Negative) Urine Blood (Negative) Urine Nitrite (Negative) Urine Bilirubin (Negative) Urine Urobilinogen (0.2) mg/dL Ur Leukocyte Esterase (Negative) U Hyaline Cast (Auto) (0-2) /LPF Urine Microscopic RBC (0-5) /HPF Urine Microscopic WBC (0-5) /HPF Ur Epithelial Cells (None Seen) /HPF Urine Bacteria (None Seen) /HPF Urine Culture Reflexed (NO) 06/03/24 06/03/24 Range/Units 13:30 13:11 WBC 7.5 (3.98-10.04) x10^3/uL RBC 3.72 L (3.93-5.22) x10^6/uL Hgb 9.5 L (11.2-15.7) g/dL Hct 30.8 L (34.1-44.9) % MCV 82.8 (79.4-94.8) fL MCH 25.5 L (25.6-32.2) pg MCHC 30.8 L (32.2-35.5) g/dL RDW 15.2 H (11.7-14.4) % Plt Count 349 (182-369) x10^3/uL MPV 8.8 L (9.4-12.3) fL Gran % 82.6 H (34.0-71.1) % Immature Gran % (Auto) 0.4 (0.001-0.429) % Nucleat RBC Rel Count 0.0 (0.00-0.2) % Eos # (Auto) 0.08 (0.04-0.36) x10^3/uL Immature Gran # (Auto) 0.03 (0.001-0.031) x10^3u/L Absolute Lymphs (auto) 0.63 L (1.18-3.74) x10^3/uL Absolute Monos (auto) 0.53 (0.24-0.86) x10^3/uL Absolute Nucleated RBC 0.00 (0.00-0.012) x10^3u/L Lymphocytes % 8.4 L (19.3-51.7) % Monocytes % 7.1 (4.7-12.5) % Eosinophils % 1.1 (0.7-5.8) % Basophils % 0.4 (0.1-1.2) % Absolute Granulocytes 6.19 H (1.56-6.13) x10^3/uL Basophils # 0.03 (0.01-0.08) x10^3/uL Sodium (135-145) mmol/L Potassium (3.5-5.1) mmol/L Chloride (98-107) mmol/L Carbon Dioxide (22-30) mmol/L Anion Gap (5-15) MEQ/L BUN (7-17) mg/dL Creatinine (0.52-1.04) mg/dL Estimated GFR ML/MIN Glucose (74-106) mg/dL Calcium (8.4-10.2) mg/dL Magnesium (1.6-2.3) mg/dL Total Bilirubin (0.2-1.3) mg/dL AST (14-36) U/L ALT (0-35) U/L Alkaline Phosphatase (38-126) U/L Troponin I (0.000-0.033) ng/mL Serum Total Protein (6.3-8.2) g/dL Albumin (3.5-5.0) g/dL Amylase (30-110) U/L Lipase (23-300) U/L Urine Color Yellow (Yellow) Urine Appearance Cloudy A (Clear) Urine pH 8.5 A (4.6-8.0) Ur Specific Sachse 1.015 (1.005-1.030) Urine Protein Negative (Negative) Urine Glucose (UA) Negative (Negative) mg/dL Urine Ketones Negative (Negative) Urine Blood Negative (Negative) Urine Nitrite Negative (Negative) Urine Bilirubin Negative (Negative) Urine Urobilinogen 0.2 (0.2) mg/dL Ur Leukocyte Esterase Moderate A (Negative) U Hyaline Cast (Auto) NONE SEEN (0-2) /LPF Urine Microscopic RBC 0-2 (0-5) /HPF Urine Microscopic WBC 6-10 A (0-5) /HPF Ur Epithelial Cells Rare (None Seen) /HPF Urine Bacteria None Seen (None Seen) /HPF Urine Culture Reflexed ORDERED SEPARATELY (NO) - Progress Progress Note: 06/03/24 19:30 Pt refuses hospitalization. 06/03/24 19:32 Pt states she gets an EGD every 3 months. Medical Desision Making - Diagnostic Testing Diagnostic test were ordered, analyzed, and reviewed by me: Yes Radiological Interpretation: Teleradiologist Report - Departure Departure Disposition: Home Clinical Impression: UTI (urinary tract infection), Abdominal pain, Chest pain Condition: Stable Critical Care Time: No Referrals: EREN MORENO [Primary Care Provider] - Follow up/PCP as directed Instructions: Abdominal pain, Chest Pain, Adult ED, Urinary tract infections in adults Additional Instructions: Follow up with private doctor tomorrow. Return to [facility] for an outpatient gallbladder ultrasound and pelvic ultrasound. Prescriptions: Nitrofurantoin Macro 100 mg [Macrobid 100MG Capsule] 100 mg PO BID #14 cap
[2024-06-03 13:32] LABS: Absolute Neutrophil Ct (ANC) 6.19 x10^3/uL (1.56-6.13); BASOPHIL % 0.4 % (0.1-1.2); Basophil (Absolute #) 0.03 x10^3/uL (0.01-0.08); Eosinophil % 1.1 % (0.7-5.8); Eosinophil (Absolute #) 0.08 x10^3/uL (0.04-0.36); Hematocrit 30.8 % (34.1-44.9); Hemoglobin 9.5 g/dL (11.2-15.7); IMMATURE GRAN # 0.03 x10^3u/L (0.001-0.031); IMMATURE GRAN % 0.4 % (0.001-0.429); Lymphocyte (Absolute #) 0.63 x10^3/uL (1.18-3.74); Lymphocytes % 8.4 % (19.3-51.7); Mean Cell Volume 82.8 fL (79.4-94.8); Mean Corpuscular Hemoglobin 25.5 pg (25.6-32.2); Mean Corpuscular Hgb Concent. 30.8 g/dL (32.2-35.5); Mean Platelet Volume 8.8 fL (9.4-12.3); Monocyte (Absolute #) 0.53 x10^3/uL (0.24-0.86); Monocytes % 7.1 % (4.7-12.5); Neutrophil % 82.6 % (34.0-71.1); Platelet Count 349 x10^3/uL (182-369); Red Blood Count 3.72 x10^6/uL (3.93-5.22); Red Cell Distribution Width 15.2 % (11.7-14.4); White Blood Count 7.5 x10^3/uL (3.98-10.04)
[2024-06-03] MEDS ORDERED: Zofran 4 MG/2 ML VIAL ONE (13:33)
[2024-06-03] MEDS: Zofran 4 MG/2 ML VIAL IV ONE (13:35)
[2024-06-03 13:43] LABS: Appearance Cloudy (Clear); Bacteria None Seen /HPF (None Seen); Bilirubin Negative (Negative); Blood Negative (Negative); Epithelial Cells Rare /HPF (None Seen); Glucose, Urine Negative (Negative); Hyaline Casts NONE SEEN /LPF (0-2); Ketones Negative (Negative); Leukocyte Esterase Moderate (Negative); Nitrite Negative (Negative); Ph 8.5 (4.6-8.0); Protein,Urine Dip Negative (Negative); RBC 0-2 /HPF (0-5); Specific Gravity 1.015 (1.005-1.030); Urobilinogen 0.2 mg/dL (0.2)
[2024-06-03 13:53] LABS: ALBUMIN 3.9 g/dL (3.5-5.0); BILIRUBIN,TOTAL 0.2 mg/dL (0.2-1.3); Calcium 9.9 mg/dL (8.4-10.2); Creatinine 1 0.6 mg/dL (0.52-1.04); EST GLOMERULAR FILTRATION RATE 90.7 ML/MIN; MAGNESIUM 2.2 mg/dL (1.6-2.3); Potassium 3.9 mmol/L (3.5-5.1); Total Protein 7.2 g/dL (6.3-8.2)
[2024-06-03] MEDS ORDERED: ROCEPHIN 1 GM / 100 ML NaCl 1 GM/100 ML IVPB IV ONE (14:05)
[2024-06-03] MEDS: ROCEPHIN 1 GM / 100 ML NaCl 1 GM/100 ML IVPB IV ONE (14:06)
[2024-06-03 18:03] VITALS: RESP 18
--- NOTE | 2024-06-03 18:09 | XRAY ---
CLINICAL HISTORY: RUQ pain COMPARISON: none. TECHNIQUE: Non-contrast CT of the abdomen and pelvis was performed, with the following protocol: axial images, and reconstructed coronal and sagittal images. No intravenous contrast was administered. One of the following dose reduction techniques was utilized for this exam: Automated exposure control, adjustment of the mA and/or kV according to patient size, and use of iterative reconstruction. FINDINGS: The distal esophagus, as well as the gastroesophageal junction and cardia, are distended by asymmetrical soft tissue mass /thickening measuring 40 mm in maximum thickness. Abdomen: Liver: is mildly enlarged measuring 16.1 cm , in shape, and density. No focal lesions, cysts, or masses were identified. Gallbladder and Biliary System: The gallbladder is distended showing hyperdense mud and microlithiasis. No biliary dilation. Pancreas: Pancreatic head, body, and tail are visualized and appear normal in size and density. No pancreatic masses or calcifications were noted. Spleen: Normal in size, shape, and density. Scattered tiny calcifications are likely sequelae of old previous infection Kidneys and Adrenal Glands: Both kidneys are normal in size, shape, and position. Cortical thickness is within normal limits. No renal calculi or hydronephrosis. Adrenal glands are unremarkable. Atherosclerotic changes of the abdominal aorta with no aneurysmal dilation Pelvis: Urinary Bladder: Normal in contour and wall thickness. No intraluminal lesions. Uterus: Bulky uterus for age with irregular for ultrasound correlation Peritoneal and Retroperitoneal Structures: No free fluid or abnormal fluid collections were identified within the abdomen or pelvis. No lymphadenopathy was noted. Bowel: The visualized bowel loops are normal in caliber and appearance. No evidence of bowel obstruction or wall thickening. Bones and Soft Tissues: Degenerative changes lumbar spine with grade 2 L5-S1 anterolisthesis with bilateral pars defect.. Sclerotic deformity to the left side. Total left-sided hip replacement. Old healed the fracture of the left pubic ramus Scanned lower chest cuts reveal bilateral calcified lower lung lobes nodules IMPRESSION: 1. Irregular soft tissue thickening/mass reaching 40 mm in maximum diameter involving the distal esophagus, gastroesophageal junction and fundus. For further assessment by oral contrast study/endoscopic. 2. Mild hepatomegaly. 3. Distended gallbladder with mild microlithiasis ultrasound correlation. 4. Bulky uterus for age with irregular contour for correlation with pelvic ultrasound. 5. Tiny splenic calcification in the bilateral lower lung groups calcified nodules likely sequelae of previous old granulomatous infection Electronically Signed by: Bushra Tejeda MD. (06/03/2024 18:05:11 EDT)
[2024-06-03 18:10] VITALS: PULSE 74
--- NOTE | 2024-06-03 18:23 | XRAY ---
CLINICAL HISTORY: chest pain COMPARISON: None. TECHNIQUE: Contiguous 3.[address] images of the chest were acquired with the administration of intravenous contrast. Coronal and sagittal reconstructions were obtained. One of the following dose-reduction techniques was utilized for this exam. Automated exposure control, adjustment of the mA and/or kV according to patient size, and use of iterative reconstruction. FINDINGS: The scanned pulmonary parenchyma shows no definite consolidative lesions. Three calcified nodule , two are noted in the right lower lobe measured 8 & 7mm and one nodule seen in the inferior lingula measured 7mm likely to represent calcified granulomas. Multiple calcified small hilar LN likely related to old granulomatous disease. Dilated esophagus down to its lower end where a polypoidal mass lesion measured 5x4.5 cm noted within the lumen of the lower esophagus could be an intussuscepted herniated stomach versus polypoidal mass lesion for endoscopic assessment. Normal enhancement of the pulmonary trunk and main pulmonary arteries, no filling to suggest pulmonary embolism. left breast small 8mm nodule for triple assessment. No free or encysted pleural effusion. Heart size is normal, and there is no pericardial effusion. No pathologically enlarged mediastinal, hilar or axillary lymph node was identified. There is no definite mass lesion in the chest wall. The scanned upper abdomen is unremarkable. IMPRESSION: 1-No pulmonary embolism in main pulmonary arteries. 2-Dilated esophagus down to its lower end where a polypoidal mass lesion noted within the lumen of the lower esophagus could be an intussuscepted herniated stomach versus polypoidal mass lesion for endoscopic assessment. 3-Pulmonary nodules and calcified hilar lymph nodes likely related to old granulomatous disease. 4-left breast small 8mm nodule for triple assessment. Electronically Signed by: Bushra Tejeda MD. (06/03/2024 18:18:20 EDT)
[2024-06-03 19:11] VITALS: BP 173/54
[2024-06-03 19:16] VITALS: O2SAT 99
== END 2024-06-03 20:00 | disposition home or self-care (01) ==
LOC: ED 12:21
DX: N39.0 Urinary tract infection, site not specified (principal); R10.11 Right upper quadrant pain; R07.9 Chest pain, unspecified; R11.2 Nausea with vomiting, unspecified; E78.5 Hyperlipidemia, unspecified; I10 Essential (primary) hypertension; Z79.899 Other long term (current) drug therapy
CPT/HCPCS: 36000; 36415; 71260; 74176; 80053; 81001; 82150; 83690; 83735; 84484; 85025; 87077; 87086; 87186; 93005; 96365; 99284; J0696; J2405